=== PATIENT | female | born 1960 | race African-American/Black ===

== ENCOUNTER 2017-09-12 19:40 | Emergency (ER) | payer BC, OTHER ==
[~2017-09-12] VITALS: Ht 152.4 cm; Wt 113.4 kg
[~2017-09-12 19:40] MED LIST: ASPI-1152 PO; ESOM20CA PO; LOSA100T15 PO; SIMV20TA6 PO
[2017-09-12] MEDS ORDERED: BENZONATATE 100 MG CAPSULE PO ONE (20:30)
[2017-09-12] MEDS ORDERED: ALBUTEROL SULFATE 2.5 MG/3 ML NEBU NEB ONE ×2 (20:30→21:30)
[2017-09-12] MEDS ORDERED: BENZONATATE 100 MG CAPSULE ONE (20:32)
[2017-09-12] MEDS ORDERED: ALBUTEROL SULFATE 2.5 MG/3 ML NEBU ONE ×2 (20:33→21:44)
--- NOTE | 2017-09-12 22:09 | NUR ---
Patient sitting in bed, watching tv, receiving breathing treatment, no acute signs of distress.
--- NOTE | 2017-09-12 23:11 | NUR ---
Xray at bedside.
--- NOTE | 2017-09-12 23:55 | NUR ---
Patient discharged to home in stable conditon. Written and verbal after care instructions given. Patient verbalizes understanding of instructions. Patient out of ER with steady gait, no acute signs of distress, VSS, all belongings taken.
[2017-09-13 00:03] VITALS: BP 143/81
== END 2017-09-13 00:04 | disposition home or self-care (01) ==
LOC: ER 19:44
DX: J20.8 Acute bronchitis due to other specified organisms (principal); B97.89 Other viral agents as the cause of diseases classified elsewhere; I10 Essential (primary) hypertension; E78.5 Hyperlipidemia, unspecified; K21.9 Gastro-esophageal reflux disease without esophagitis; Z79.82 Long term (current) use of aspirin; Z79.899 Other long term (current) drug therapy
CPT/HCPCS: 71045; A4663

== ENCOUNTER 2018-04-10 11:00 | Emergency (ER) | payer BC, OTHER ==
[~2018-04-10] VITALS: Ht 152.4 cm; Wt 113.4 kg
--- NOTE | 2018-04-10 11:22 | NUR ---
ALIREZA BARRIGA at the bedside for MSE.
[2018-04-10 11:38] VITALS: BP 152/70
--- NOTE | 2018-04-10 11:39 | NUR ---
Patient discharged to home in stable conditon. Written and verbal after care instructions given. Patient verbalizes understanding of instructions.
== END 2018-04-10 11:40 | disposition home or self-care (01) ==
LOC: ER 11:00
DX: J03.90 Acute tonsillitis, unspecified (principal); I10 Essential (primary) hypertension; E78.5 Hyperlipidemia, unspecified; K21.9 Gastro-esophageal reflux disease without esophagitis
CPT/HCPCS: A4663

== ENCOUNTER 2019-08-05 17:27 | Emergency (ER) | payer BC, OTHER ==
[~2019-08-05] VITALS: Ht 165.1 cm; Wt 136.1 kg
[2019-08-05] MEDS ORDERED: IPRATROPIUM BROMIDE 0.5 MG/2.5 ML NEBU ONE (21:11)
[2019-08-05] MEDS ORDERED: ALBUTEROL SULFATE 2.5 MG/3 ML NEBU ONE (21:11)
[2019-08-05] MEDS ORDERED: ALBUTEROL SULFATE 2.5 MG/3 ML NEBU NEB ONE (21:15)
[2019-08-05] MEDS ORDERED: IPRATROPIUM BROMIDE 0.5 MG/2.5 ML NEBU NEB ONE (21:15)
[2019-08-05] MEDS ORDERED: predniSONE 10 MG TABLET PO ONE (21:15)
[2019-08-05] MEDS ORDERED: predniSONE 50 MG TABLET ONE (21:30)
[2019-08-05] MEDS ORDERED: predniSONE 10 MG TABLET ONE (21:30)
--- NOTE | 2019-08-05 22:40 | NUR ---
Patient discharged to home in stable conditon. Written and verbal after care instructions given. Patient verbalizes understanding of instructions. walked out of ER with no distress noted.
[2019-08-05 22:41] VITALS: BP 120/88
== END 2019-08-05 22:41 | disposition home or self-care (01) ==
LOC: ER 17:29
DX: J20.9 Acute bronchitis, unspecified (principal); I10 Essential (primary) hypertension; E78.5 Hyperlipidemia, unspecified; K21.9 Gastro-esophageal reflux disease without esophagitis; Z79.899 Other long term (current) drug therapy
CPT/HCPCS: 71045; 94640; 99283; J7512 ×2; A4663; J3590

== ENCOUNTER 2021-03-11 18:48 | Inpatient (IN) | payer BC, OTHER ==
[~2021-03-11] VITALS: Ht 165.1 cm; Wt 154.2 kg
[~2021-03-11 18:48] MED LIST changes: -ASPI-1152 PO; +ASPI-1420 PO; -LOSA100T15 PO; +LOSA100T31 PO; +SIMV-46 PO; -SIMV20TA6 PO
--- NOTE | 2021-03-11 21:44 | NUR ---
PATIENT ARRIVED AT THE ER C/O MANNING, NECK PAIN, CHILLS AND PRODUCTIVE COUGH THAT STARTED 9 DAYS.
--- NOTE | 2021-03-11 21:55 | NUR ---
Dr. Foote on bedside for MSE.
[2021-03-11] MEDS ORDERED: OXYCODONE/APAP 5-325 MG TABLET PO ONE (22:15)
[2021-03-11] MEDS ORDERED: OXYCODONE/APAP 5-325 MG TABLET ONE (22:17)
[2021-03-11 22:36] LABS: HEMATOCRIT 40.7 % (31.2-41.9); MEAN CORPUSCULAR HEMOGLOBIN 27.9 uug (24.7-32.8); MEAN CORPUSCULAR VOLUME 85.1 fL (75.5-95.3); PLATELET COUNT (AUTO) 216 K/uL (179-408)
[2021-03-11 22:44] LABS: CREATININE 0.9 mg/dL (0.6-1.3)
[2021-03-11 23:03] LABS: BILIRUBIN,TOTAL 0.2 mg/dL (0.2-1.0); TOTAL PROTEIN, SERUM 8.1 g/dL (6.4-8.2)
[2021-03-11] MEDS ORDERED: DEXAMETHASONE SOD PHOSPHATE 4 MG INJ IV ONE (23:15)
[2021-03-11] MEDS ORDERED: DEXAMETHASONE SOD PHOSPHATE 10 MG INJ ONE (23:40)
[2021-03-12 00:22] LABS: *BILIRUBIN,URIN 1+ (NEGATIVE); *BLOOD, URINE NEGATIVE (NEGATIVE); *COLOR,URINE AMBER (YELLOW); *KETONES,URINE 1+ (NEGATIVE); *UROBILINOGEN,URINE 0.2 E.U./dl (NORMAL); LEUKOCYTE ESTERASE ,URINE NEGATIVE (NEGATIVE); NITRITE, URINE NEGATIVE (NEGATIVE); PH,URINE 5.5 (5.0-8.0); UGLUCOSE NEGATIVE (NEGATIVE)
[2021-03-12 00:23] LABS: *CLARITY,URINE HAZY (CLEAR)
[2021-03-12 00:37] LABS: RBC,URINE 0-3 /HPF (0-3)
[2021-03-12 00:38] LABS: BACTERIA,URINE MODERATE /HPF (NONE SEEN); SQUAMOUS EPITHELIAL CELL,UR MANY /HPF (NONE SEEN)
--- NOTE | 2021-03-12 03:14 | NUR ---
[facility] panel call placed. Spoke to Tiffani, she stated she will get a hold of Dr. Patricio for admitting.
--- NOTE | 2021-03-12 03:25 | NUR ---
Shantanu Patricio DNP, sterilization specialist for [facility] accepted patient to Tele floor.
[2021-03-12] MEDS ORDERED: HOME MED MISCELLANEOUS XX SCH ×2 (03:30)
[2021-03-12] MEDS ORDERED: ONDANSETRON 4 MG/2 ML VIAL IV PRN (03:30)
--- NOTE | 2021-03-12 03:42 | NUR ---
Dr. Foote on panel call with LEA Grissom. Patient accepted for admission to telemetry unit. Luis GILL.
[2021-03-12 05:05] VITALS: BP 109/64
--- NOTE | 2021-03-12 05:14 | NUR ---
Pt. admitted to telemetry unit, room 314, under care of LEA Patricio. Belongs List completed.
[2021-03-12] MEDS: ACETAMINOPHEN 325 MG TABLET PO PRN (06:11)
--- NOTE | 2021-03-12 06:22 | NUR ---
At 0500H, admitted 60 y/o female to Tele from ER with dx of Covid 19, PNA. On O2 at 2lpm via NC, saturating at 93%. She is alert and oriented x4, able to make needs known. BRP, continent to B&B. Admission process observed, belongings list filled up. IV on L hand patent and intact, flushed with NS. Tylenol PRN given d/t neck pain. Oriented to room, verbalized understanding. Call light placed within reach. Frequent visual checks done. Will endorse to next shift for continuity of care.
[2021-03-12] MEDS: PANTOPRAZOLE SODIUM 40 MG TABLET.DR PO SCH (06:50)
[2021-03-12 08:47] VITALS: BP 118/55
[2021-03-12] MEDS: LOSARTAN POTASSIUM 50 MG TABLET PO SCH (08:52)
[2021-03-12] MEDS: ZINC SULFATE 220 MG CAPSULE PO SCH (08:52)
[2021-03-12] MEDS: ASPIRIN EC 81 MG TABLET.DR PO SCH (08:52)
[2021-03-12] MEDS: DEXAMETHASONE SOD PHOSPHATE 4 MG INJ IV SCH (08:52)
[2021-03-12] MEDS: ASCORBIC ACID 500 MG TABLET PO SCH (08:52)
[2021-03-12] MEDS: ENOXAPARIN SODIUM 40 MG/0.4 ML DISP.SYRIN SQ SCH (08:59)
[2021-03-12] MEDS ORDERED: SIMVASTATIN 20 MG TABLET PO SCH (09:00)
[2021-03-12] MEDS: AZITHROMYCIN 250 MG TABLET PO SCH (11:10)
[2021-03-12] MEDS ORDERED: REMDESIVIR (CHARGED) 200 MG in IV NORMAL SALINE 210 ML IV ONE (12:00)
[2021-03-12] MEDS ORDERED: AMLO-212 PO (14:51)
[2021-03-12 15:49] VITALS: BP 123/58
--- NOTE | 2021-03-12 17:44 | NUR ---
Pt stable throughout the shift. Denies any acute distress or pain at this time. Kept on 2L, tolerating well. NSR on the monitor. Initial dose of remdesivir given. Comfort care and needs attended. Isolation precaution maintained. Safety precautions in place. Will endorse to oncoming nurse
[2021-03-12] MEDS: SIMVASTATIN 20 MG TABLET PO SCH (20:14)
[2021-03-12 20:15] VITALS: BP 109/50
--- NOTE | 2021-03-12 20:30 | NUR ---
RECEIVED PATIENT AWAKE IN BED. ON ISOLATION FOR COVID POSITIVE. A/O X4. DENIES ANY PAIN OR DISCOMFORT. NO RESP. DISTRESS NOTED. DENIES ANY SOB. ON O2 2L NC SATING WELL. VS WNL. ON TELE SR. CALL LIGHT IN REACH. ALL NEEDS ATTENDED. WILL CONTINUE TO MONITOR AND ASSESS.
[2021-03-13] VITALS: BP 128/64
[2021-03-13 05:42] VITALS: BP 116/61
--- NOTE | 2021-03-13 06:02 | NUR ---
PATIENT ASLEEP IN BED. ON TELE SR. VS WNL. SLEPT WELL THROUGHOUT THE NIGHT. DENIES ANY SOB OR DISCOMFORT. CALL LIGHT IN REACH. ALL NEEDS ATTENDED.
[2021-03-13] MEDS: PANTOPRAZOLE SODIUM 40 MG TABLET.DR PO SCH (06:12)
[2021-03-13 07:19] LABS: HEMATOCRIT 36.8 % (31.2-41.9); MEAN CORPUSCULAR HEMOGLOBIN 27.8 uug (24.7-32.8); MEAN CORPUSCULAR VOLUME 84.6 fL (75.5-95.3); PLATELET COUNT (AUTO) 241 K/uL (179-408)
[2021-03-13 07:36] LABS: BILIRUBIN,TOTAL 0.1 mg/dL (0.2-1.0); CREATININE 0.7 mg/dL (0.6-1.3); POTASSIUM 3.8 mmol/L (3.5-5.1); TOTAL PROTEIN, SERUM 7.2 g/dL (6.4-8.2)
[2021-03-13] MEDS: LOSARTAN POTASSIUM 50 MG TABLET PO SCH (08:00)
[2021-03-13] MEDS: ZINC SULFATE 220 MG CAPSULE PO SCH (08:00)
[2021-03-13] MEDS: ASCORBIC ACID 500 MG TABLET PO SCH (08:00)
[2021-03-13] MEDS: ASPIRIN EC 81 MG TABLET.DR PO SCH (08:00)
[2021-03-13] MEDS: ENOXAPARIN SODIUM 40 MG/0.4 ML DISP.SYRIN SQ SCH (08:01)
[2021-03-13] MEDS: DEXAMETHASONE SOD PHOSPHATE 4 MG INJ IV SCH (08:11)
[2021-03-13] MEDS: AZITHROMYCIN 250 MG TABLET PO SCH (09:37)
[2021-03-13] MEDS: REMDESIVIR (CHARGED) 100 MG in IV NORMAL SALINE 100 ML IV SCH (11:12)
[2021-03-13 12:00] VITALS: BP 107/63
[2021-03-13] MEDS: BENZONATATE 100 MG CAPSULE PO PRN ×2 (13:11→23:50)
[2021-03-13 16:04] VITALS: BP 108/67
--- NOTE | 2021-03-13 19:30 | NUR ---
PATIENT ALERT ORIENTED, NO SOB NO CHEST PAIN, ON OXYGEN 2 LITER NC SAT 98%, NO COMPLAIN OF PAIN, CONT TO MONITOR. CONT TO MONITOR.
[2021-03-13] MEDS: SIMVASTATIN 20 MG TABLET PO SCH (20:05)
[2021-03-13 20:10] VITALS: BP 114/64
[2021-03-13] MEDS: ALBUTEROL SULFATE 8 GM HFA.AER.AD IH PRN (23:54)
[2021-03-14 00:01] VITALS: BP 97/53
--- NOTE | 2021-03-14 00:01 | NUR ---
PATIENT ALERT ORIENTED, NO COMPLAIN OF SOB, BUT SAT 88% AT 2 LITER, INCREASED OXYGEN TO 4 LITERS, GIVEN TESSALON COUGH MEDS, PLUS ALBUTEROL PUFF, SAT BECOME 91-92% AT 4 LITERS, CONT TO MONITOR.
--- NOTE | 2021-03-14 00:02 | NUR ---
PATIENT ON TELE MONITOR SINUS RHYTHM 82 HEART RATE. NO S/S OF DISTRESS.
--- NOTE | 2021-03-14 01:02 | NUR ---
RT ASSESS THE PATIENT DUE EPISODE OF LOW SAT OF 88, RT INCREASED O2 AT 6 LITERS NC SAT 90-91%, PATIENT HAS NO COMPLAIN OF SOB, NO S/S OF DISTRESS, SINUS RHYTHM AT THIS TIME. CONT TO MONITOR.
[2021-03-14 04:17] VITALS: BP 111/61
[2021-03-14] MEDS: PANTOPRAZOLE SODIUM 40 MG TABLET.DR PO SCH (06:08)
[2021-03-14 06:44] LABS: HEMATOCRIT 37.1 % (31.2-41.9); MEAN CORPUSCULAR VOLUME 84.3 fL (75.5-95.3); PLATELET COUNT (AUTO) 314 K/uL (179-408)
[2021-03-14 07:00] LABS: BILIRUBIN,DIRECT 0.1 mg/dL (0.0-0.2); BILIRUBIN,TOTAL 0.2 mg/dL (0.2-1.0); CREATININE 0.7 mg/dL (0.6-1.3); TOTAL PROTEIN, SERUM 7.5 g/dL (6.4-8.2)
--- NOTE | 2021-03-14 07:30 | NUR ---
Received patient on continuous o2 at 6L via NC, saturating at 88-89%. Denies pain. Kept call light within reach. Will continue to monitor.
[2021-03-14 08:00] VITALS: BP 120/82
[2021-03-14] MEDS: DEXAMETHASONE SOD PHOSPHATE 4 MG INJ IV SCH (08:43)
[2021-03-14] MEDS: ASPIRIN EC 81 MG TABLET.DR PO SCH (08:43)
[2021-03-14] MEDS: ZINC SULFATE 220 MG CAPSULE PO SCH (08:43)
[2021-03-14] MEDS: LOSARTAN POTASSIUM 50 MG TABLET PO SCH (08:44)
[2021-03-14] MEDS: ASCORBIC ACID 500 MG TABLET PO SCH (08:44)
[2021-03-14] MEDS: ENOXAPARIN SODIUM 40 MG/0.4 ML DISP.SYRIN SQ SCH (08:51)
[2021-03-14] MEDS: AZITHROMYCIN 250 MG TABLET PO SCH (09:13)
[2021-03-14 11:43] VITALS: BP 105/58
--- NOTE | 2021-03-14 12:00 | NUR ---
RT increased os at 10L via mask, on continuous o2 sat monitoring. Saturating at 90-92%. Noted with decreased in o2 sat to 88-89% with minimal activity moving side to side. Patient is unable to tolerate walking to the bathroom, SOB noted. Bedpan was offered, tolerated well. Bedside commode kept in place and within reach if needed. Will continue to monitor.
[2021-03-14] MEDS: REMDESIVIR (CHARGED) 100 MG in IV NORMAL SALINE 100 ML IV SCH (12:08)
[2021-03-14 16:00] VITALS: BP 112/62
--- NOTE | 2021-03-14 18:05 | NUR ---
No distress identified and denies pain during the shift. All needs attended. Due meds given as ordered. Assisted with all her needs. Will endorse to the next shift for continuity of care.
--- NOTE | 2021-03-14 19:30 | NUR ---
RECEIVED PT AWAKE, ALERT AND ORIENTEDX4. PT IN NO ACUTE DISTRESS. IV INTACT. PT ON 10L VIA MASK. SAFETY AND COMFORT PROVIDED. WILL CONTINUE TO MONITOR.
[2021-03-14] MEDS: ACETAMINOPHEN 325 MG TABLET PO PRN (20:04)
[2021-03-14] MEDS: BENZONATATE 100 MG CAPSULE PO PRN (20:05)
[2021-03-14] MEDS: SIMVASTATIN 20 MG TABLET PO SCH (20:05)
[2021-03-14 20:21] VITALS: BP 114/51
--- NOTE | 2021-03-14 21:30 | NUR ---
AT 2004H TYLENOL 650 MG PRN AND TESSALON PERLES 100MG PRN GIVEN TO PT PER PT REQUEST.
[2021-03-15 00:03] VITALS: BP 109/68
[2021-03-15 04:21] VITALS: BP 121/64
--- NOTE | 2021-03-15 06:02 | NUR ---
PT SLEPT INTERMITTENTLY. PT IN NO ACUTE DISTRESS. PRESCRIBED MEDICATION GIVEN AND PT TOLERATED IT WELL. PT ON SINUS RHYTHM. PT ON 10L OXYGEN.IV INTACT SAFETY AND COMFORT PROVIDED. ALL NEEDS ARE MET. WILL ENDORSE TO INCOMING NURSE FOR CONTINUITY OF CARE.
[2021-03-15] MEDS ORDERED: PANTOPRAZOLE SODIUM 40 MG TABLET.DR PO ONE (06:37)
[2021-03-15 06:40] LABS: HEMATOCRIT 39.5 % (31.2-41.9); MEAN CORPUSCULAR HEMOGLOBIN 27.5 uug (24.7-32.8); MEAN CORPUSCULAR VOLUME 84.9 fL (75.5-95.3); PLATELET COUNT (AUTO) 373 K/uL (179-408)
[2021-03-15] MEDS: PANTOPRAZOLE SODIUM 40 MG TABLET.DR PO SCH (06:51)
--- NOTE | 2021-03-15 07:30 | NUR ---
received sitting at edge of bed, had just gone to commode. on 10lpm O2 no resp distress noted. denies pain or difficulty breathing. assisted back to bed. kept comfortable. bed low and locked siderails on. kept comfortable. will continue to monitor.
[2021-03-15] MEDS: ASPIRIN EC 81 MG TABLET.DR PO SCH (08:30)
[2021-03-15] MEDS: DEXAMETHASONE SOD PHOSPHATE 4 MG INJ IV SCH (08:31)
[2021-03-15] MEDS: ZINC SULFATE 220 MG CAPSULE PO SCH (08:31)
[2021-03-15] MEDS: LOSARTAN POTASSIUM 50 MG TABLET PO SCH (08:31)
[2021-03-15] MEDS: ENOXAPARIN SODIUM 40 MG/0.4 ML DISP.SYRIN SQ SCH (08:33)
[2021-03-15 09:07] LABS: BILIRUBIN,DIRECT 0.1 mg/dL (0.0-0.2); BILIRUBIN,TOTAL 0.2 mg/dL (0.2-1.0); CREATININE 0.6 mg/dL (0.6-1.3); POTASSIUM 3.8 mmol/L (3.5-5.1); TOTAL PROTEIN, SERUM 7.4 g/dL (6.4-8.2)
[2021-03-15] MEDS: ASCORBIC ACID 500 MG TABLET PO SCH (09:20)
[2021-03-15] MEDS: REMDESIVIR (CHARGED) 100 MG in IV NORMAL SALINE 100 ML IV SCH (11:58)
[2021-03-15 13:15] VITALS: BP 101/73
[2021-03-15 15:42] VITALS: BP 106/70
[2021-03-15] MEDS: ALBUTEROL SULFATE 8 GM HFA.AER.AD IH PRN (17:35)
--- NOTE | 2021-03-15 18:48 | NUR ---
alert and oriented x4. sr on tele hr 90. no acute distress. remains on 10 Lpm simple mask tolerated. spo2 noted 90-92% at rest. remdesivir given as ordered. no adverse/allergic reactions noted. pt is kept comfortable. needs attended. safety measures kept in place.
--- NOTE | 2021-03-15 19:30 | NUR ---
RECEIVED PT AWAKE, ALERT AND ORIENTEDX4. PT IN NO ACUTE DISTRESS. IV INTACT. PT ON 10L SIMPLE MASK AT 95%. SAFETY AND COMFORT PROVIDED. WILL CONTINUE TO MONITOR.
[2021-03-15] MEDS: BENZONATATE 100 MG CAPSULE PO PRN (20:20)
[2021-03-15] MEDS: SIMVASTATIN 20 MG TABLET PO SCH (20:20)
--- NOTE | 2021-03-15 20:20 | NUR ---
SHANTAL HARVEY GIVEN AT 2020H FOR COUGH PER PT REQUEST. PT IN NO ACUTE DISTRESS. WILL CONTINUE TO MONITOR.
[2021-03-15 20:44] VITALS: BP 107/65
[2021-03-16] VITALS (7 sets, daily range): BP systolic 108–129; BP diastolic 66–77
--- NOTE | 2021-03-16 01:11 | NUR ---
15 L NONREBREATHER MASK WAS PLACED FOR THE PT. PT DESATURATED 86% WHILE SLEEPING. RT AWARE.
--- NOTE | 2021-03-16 06:00 | NUR ---
PT SLEPT INTERMITTENTLY. PT IN NO ACUTE DISTRESS. PT ON 15L NONREBREATHER MASK. PRESCRIBED MEDICATION GIVEN AND PT TOLERATED IT WELL. PT ON SINUS RHYTHM. TESSALON PERLES GIVEN PRN . SAFETY AND COMFORT PROVIDED. ALL NEEDS ARE MET. WILL ENDORSE TO INCOMING NURSE FOR CONTINUITY OF CARE.
[2021-03-16] MEDS: BENZONATATE 100 MG CAPSULE PO PRN (06:04)
[2021-03-16] MEDS: PANTOPRAZOLE SODIUM 40 MG TABLET.DR PO SCH (06:04)
[2021-03-16 06:28] LABS: HEMATOCRIT 40.7 % (31.2-41.9); MEAN CORPUSCULAR VOLUME 84.3 fL (75.5-95.3); PLATELET COUNT (AUTO) 478 K/uL (179-408)
[2021-03-16 06:39] LABS: BILIRUBIN,DIRECT 0.1 mg/dL (0.0-0.2); BILIRUBIN,TOTAL 0.3 mg/dL (0.2-1.0); CREATININE 0.6 mg/dL (0.6-1.3); POTASSIUM 3.8 mmol/L (3.5-5.1); TOTAL PROTEIN, SERUM 7.7 g/dL (6.4-8.2)
--- NOTE | 2021-03-16 07:30 | NUR ---
RECEIVED PATIENT IN BED AWAKE ALERT AND ORIENTED DENIES DISCOMFORTS REMAIN ON CONTACT AND RESPIRATORY ISOLATION AND PRECAUTION DUE TO POSITIVE COVID.ON ON NON REBREATHER MASK AT 15 LITERS WITH SATS AT 93PERCENT WITH NO SHORTNESS OF BREATH AT THIS TIME SHE IS SR ON TELE CALL LIGHTS AND PERSONAL BELONGINGS ARE WITHIN EASY REACH MADE COMFORTABLE AND WILL CONTINUE TO OBSERV.
[2021-03-16] MEDS: ASPIRIN EC 81 MG TABLET.DR PO SCH (08:27)
[2021-03-16] MEDS: DEXAMETHASONE SOD PHOSPHATE 4 MG INJ IV SCH (08:27)
[2021-03-16] MEDS: ASCORBIC ACID 500 MG TABLET PO SCH (08:27)
[2021-03-16] MEDS: ZINC SULFATE 220 MG CAPSULE PO SCH (08:27)
[2021-03-16] MEDS: LOSARTAN POTASSIUM 50 MG TABLET PO SCH (08:28)
[2021-03-16] MEDS: ENOXAPARIN SODIUM 40 MG/0.4 ML DISP.SYRIN SQ SCH (08:31)
--- NOTE | 2021-03-16 08:47 | NUR ---
DR SANFORD HERE TO SEE PATIENT WITH NEW ORDERS AND NOTED
[2021-03-16] MEDS: REMDESIVIR (CHARGED) 100 MG in IV NORMAL SALINE 100 ML IV SCH (12:21)
--- NOTE | 2021-03-16 12:21 | NUR ---
REMDESIVIR STATED AND INFUSED ORDERED WITH NO ADVERSE OR ALLERGIC REACTIONS QAT THIS TIME
--- NOTE | 2021-03-16 19:30 | NUR ---
Received patient lying in bed. AAOx4. In no apparent distress. On O2 at 15LPM via non-rebreather mask in place. O2 sat at 94%. Midline line on right upper arm intact and patent. NSR on tele with HR of 80/min. COVID precaution observed. Safety measure initiated and call acosta within reached.
[2021-03-16] MEDS: SIMVASTATIN 20 MG TABLET PO SCH (20:07)
[2021-03-17] VITALS: BP 119/69
[2021-03-17] MEDS: ALBUTEROL SULFATE 8 GM HFA.AER.AD IH PRN (00:56)
[2021-03-17 04:00] VITALS: BP 124/74
[2021-03-17 06:02] LABS: HEMATOCRIT 38.5 % (31.2-41.9); MEAN CORPUSCULAR HEMOGLOBIN 28.1 uug (24.7-32.8); MEAN CORPUSCULAR VOLUME 84.5 fL (75.5-95.3); PLATELET COUNT (AUTO) 480 K/uL (179-408)
[2021-03-17] MEDS: PANTOPRAZOLE SODIUM 40 MG TABLET.DR PO SCH (06:14)
[2021-03-17 06:18] LABS: ALANINE AMINOTRANSFERASE 23 U/L (14-59); ALKALINE PHOSPHATASE 62 U/L (50-136); ASPARTATE AMINOTRANSFERASE 15 U/L (15-37); BILIRUBIN,DIRECT < 0.1 mg/dL (0.0-0.2); BILIRUBIN,TOTAL 0.3 mg/dL (0.2-1.0); CARBON DIOXIDE 31 mmol/L (21-32); CHLORIDE 101 mmol/L (98-107); CREATININE 0.6 mg/dL (0.6-1.3); FERRITIN 165 ng/mL (8-252); GLUCOSE 103 mg/dL (74-106); LACTATE DEHYDROGENASE 298 U/L (81-234); MAGNESIUM 2.3 mg/dL (1.8-2.4); PHOSPHOROUS 3.7 mg/dL (2.5-4.9); POTASSIUM 3.5 mmol/L (3.5-5.1); TOTAL PROTEIN, SERUM 7.2 g/dL (6.4-8.2); UREA NITROGEN, BLOOD 13 mg/dL (7-18)
--- NOTE | 2021-03-17 06:38 | NUR ---
AAOx4. On O2 at 15LPM via non-rebreather mask in place. O2 sat at 91%. Midline line on right upper arm intact and patent. NSR on tele with HR of 79/min. COVID precaution maintained. Needs attended to and met. Safety measure maintained and call acosta within reached.
--- NOTE | 2021-03-17 08:00 | NUR ---
RESTING COMFORTABLY SITTING AT BEDSIDE WITH 15L NRM SATURATING 91-95%. YELENA TO VERBALIZE NEEDS, SR/ST ON MONITOR 100-110/MIN.
[2021-03-17] MEDS: ASCORBIC ACID 500 MG TABLET PO SCH (08:30)
[2021-03-17] MEDS: ASPIRIN EC 81 MG TABLET.DR PO SCH (08:30)
[2021-03-17] MEDS: ENOXAPARIN SODIUM 40 MG/0.4 ML DISP.SYRIN SQ SCH (08:30)
[2021-03-17] MEDS: DEXAMETHASONE SOD PHOSPHATE 4 MG INJ IV SCH ×3 (08:31→21:00)
[2021-03-17] MEDS: ACETAMINOPHEN 325 MG TABLET PO PRN ×2 (08:31→13:36)
[2021-03-17] MEDS: LOSARTAN POTASSIUM 50 MG TABLET PO SCH (08:31)
[2021-03-17] MEDS: ZINC SULFATE 220 MG CAPSULE PO SCH (08:31)
[2021-03-17 12:00] VITALS: BP 107/62
--- NOTE | 2021-03-17 12:00 | NUR ---
SEEN BY DR SANFORD SEE NOTES
[2021-03-17] MEDS ORDERED: TOCILIZUMAB 800 MG in IV NORMAL SALINE 60 ML IV ONE (13:00)
[2021-03-17] MEDS ORDERED: diphenhydrAMINE 50 MG/1 ML VIAL IV ONE (13:00)
[2021-03-17] MEDS ORDERED: ACETAMINOPHEN 650 MG/20.3 ML LIQUID UDC PO ONE (13:00)
[2021-03-17 16:00] VITALS: BP 117/66
--- NOTE | 2021-03-17 16:15 | NUR ---
CONTINUE TX FOR COVED ORDERED. NO ACTE SOB TOLERATING 15L NRM
[2021-03-17 20:00] VITALS: BP 116/72
--- NOTE | 2021-03-17 20:15 | NUR ---
Received patient lying in bed. HOB elevated. AAOx4. In no acute distress. On O2 at 15LPM via non-rebreather mask in place. Midline line on right upper arm intact and patent. NSR on tele with HR of 91/min. Needs assessed and attended to. COVID precaution observed. Safety measure initiated and call acosta within reached.
[2021-03-17] MEDS: SIMVASTATIN 20 MG TABLET PO SCH (20:52)
[2021-03-18] VITALS: BP 112/70
[2021-03-18 04:00] VITALS: BP 104/69
[2021-03-18] MEDS: DEXAMETHASONE SOD PHOSPHATE 4 MG INJ IV SCH ×3 (05:22→21:00)
--- NOTE | 2021-03-18 06:11 | NUR ---
Patient slept well last night. AOx4. Denies any pain or SOB. On O2 at 15LPM via non-rebreather mask in place. O2 sat at 92%. Midline line on right upper arm intact and patent. NSR on tele with HR of 69/min. Needs attended to and met. COVID precaution maintained. Safety measures maintained and call acosta within reached.
[2021-03-18] MEDS: PANTOPRAZOLE SODIUM 40 MG TABLET.DR PO SCH (06:15)
[2021-03-18 06:21] LABS: HEMATOCRIT 36.7 % (31.2-41.9); MEAN CORPUSCULAR HEMOGLOBIN 27.8 uug (24.7-32.8); MEAN CORPUSCULAR VOLUME 83.8 fL (75.5-95.3); PLATELET COUNT (AUTO) 533 K/uL (179-408)
[2021-03-18 06:33] LABS: CREATININE 0.6 mg/dL (0.6-1.3); MAGNESIUM 2.4 mg/dL (1.8-2.4); PHOSPHOROUS 3.8 mg/dL (2.5-4.9); POTASSIUM 4.2 mmol/L (3.5-5.1)
[2021-03-18 06:35] LABS: THYROID STIMULATING HORMONE 0.337 mIU/mL (0.358-3.740)
[2021-03-18] MEDS ORDERED: MAG HYDROX/AL HYDROX/SIMETH 30 ML LIQUID UDC PO PRN (08:45)
[2021-03-18] MEDS: ZINC SULFATE 220 MG CAPSULE PO SCH (10:02)
[2021-03-18] MEDS: ASCORBIC ACID 500 MG TABLET PO SCH (10:03)
[2021-03-18] MEDS: ASPIRIN EC 81 MG TABLET.DR PO SCH (10:03)
[2021-03-18] MEDS: LOSARTAN POTASSIUM 50 MG TABLET PO SCH (10:03)
[2021-03-18] MEDS: ENOXAPARIN SODIUM 40 MG/0.4 ML DISP.SYRIN SQ SCH (10:04)
[2021-03-18] MEDS ORDERED: FUROSEMIDE 40 MG/4 ML VIAL IV ONE (11:00)
[2021-03-18 12:00] VITALS: BP 124/55
[2021-03-18 16:00] VITALS: BP 120/69
[2021-03-18 20:00] VITALS: BP 104/46
--- NOTE | 2021-03-18 22:37 | NUR ---
Received pt awake on bed, at 15LPM via non-rebreather mask in place. O2 sat at 94%. Midline line on CLARENCE remains intact and patent. Due medication given and tolerated well. All needs attended. Droplet isolation precaution observed. Call light placed within reach.
[2021-03-19] VITALS: BP 105/62
[2021-03-19] MEDS: ACETAMINOPHEN 325 MG TABLET PO PRN (01:28)
[2021-03-19 04:00] VITALS: BP 112/54
[2021-03-19] MEDS: DEXAMETHASONE SOD PHOSPHATE 4 MG INJ IV SCH ×3 (05:48→21:12)
[2021-03-19] MEDS: PANTOPRAZOLE SODIUM 40 MG TABLET.DR PO SCH (06:01)
[2021-03-19 06:10] LABS: CREATININE 0.8 mg/dL (0.6-1.3); MAGNESIUM 2.3 mg/dL (1.8-2.4); PHOSPHOROUS 4.1 mg/dL (2.5-4.9); POTASSIUM 4.2 mmol/L (3.5-5.1)
--- NOTE | 2021-03-19 06:13 | NUR ---
Pt slept intermittently throughout the night, On O2 at 15LPM via non-rebreather. Saturating at 94-96%. Midline line on CLARENCE remains intact and patent. Due medication given and tolerated well. Tylenol PRN given for mild neck pain. All needs attended. Covid precaution observed. All needs attended. Call light placed within reach. Frequent visual checks done. Will endorse for continuity of care.
[2021-03-19 07:17] LABS: THYROID STIMULATING HORMONE 0.386 mIU/mL (0.358-3.740)
[2021-03-19 07:46] LABS: HEMATOCRIT 41.6 % (31.2-41.9); MEAN CORPUSCULAR HEMOGLOBIN 28.1 uug (24.7-32.8); MEAN CORPUSCULAR VOLUME 90.1 fL (75.5-95.3); PLATELET COUNT (AUTO) 528 K/uL (179-408)
[2021-03-19] MEDS: LOSARTAN POTASSIUM 50 MG TABLET PO SCH (09:00)
[2021-03-19] MEDS: ASPIRIN EC 81 MG TABLET.DR PO SCH (09:23)
[2021-03-19] MEDS: ENOXAPARIN SODIUM 40 MG/0.4 ML DISP.SYRIN SQ SCH (09:23)
[2021-03-19] MEDS: ZINC SULFATE 220 MG CAPSULE PO SCH (09:23)
[2021-03-19] MEDS: ASCORBIC ACID 500 MG TABLET PO SCH (09:23)
[2021-03-19] MEDS ORDERED: FUROSEMIDE 40 MG/4 ML VIAL IV ONE (09:30)
[2021-03-19 11:32] VITALS: BP 116/69
[2021-03-19 15:15] VITALS: BP 92/56
--- NOTE | 2021-03-19 18:52 | NUR ---
Pt remains AAOx4 with 02 at 15 liters by NRB mask 02sat 98-99%,no acute distress .No c/o pain or discomfort. Midline at CLARENCE intact and patent. Meds given as ordered and tolerated well. Seen by DR Yi, update given to MD with new order for incentive spirometer.Explained to PT how to use incentive spirometer and the PT verbalized understanding.Assisted with all her needs promptly,call light and frequently used items placed within PT's reach.
[2021-03-19 20:52] VITALS: BP 120/75
[2021-03-20 00:10] VITALS: BP 110/65
--- NOTE | 2021-03-20 04:26 | NUR ---
Pt slept throughut the night. Denies chest pain. Pt desats when trying to move or when talking, otherwise during rest pt sats 97% on 15L NRM. Pt is able to make needs known. CLARENCE midline is intact. No other issues or concerns at this time, will endorse to day shift.
[2021-03-20 04:35] VITALS: BP 108/59
[2021-03-20] MEDS: PANTOPRAZOLE SODIUM 40 MG TABLET.DR PO SCH (06:22)
[2021-03-20] MEDS: DEXAMETHASONE SOD PHOSPHATE 4 MG INJ IV SCH ×3 (06:23→21:46)
[2021-03-20 06:38] LABS: HEMATOCRIT 38.1 % (31.2-41.9); MEAN CORPUSCULAR HEMOGLOBIN 28.1 uug (24.7-32.8); MEAN CORPUSCULAR VOLUME 83.9 fL (75.5-95.3); PLATELET COUNT (AUTO) 624 K/uL (179-408)
[2021-03-20 06:55] LABS: CREATININE 0.9 mg/dL (0.6-1.3); MAGNESIUM 2.3 mg/dL (1.8-2.4); PHOSPHOROUS 3.5 mg/dL (2.5-4.9); POTASSIUM 4.1 mmol/L (3.5-5.1)
[2021-03-20] MEDS: ENOXAPARIN SODIUM 40 MG/0.4 ML DISP.SYRIN SQ SCH (08:07)
[2021-03-20] MEDS: ASCORBIC ACID 500 MG TABLET PO SCH (08:26)
[2021-03-20] MEDS: ASPIRIN EC 81 MG TABLET.DR PO SCH (08:26)
[2021-03-20] MEDS: ZINC SULFATE 220 MG CAPSULE PO SCH (08:26)
[2021-03-20] MEDS: LOSARTAN POTASSIUM 50 MG TABLET PO SCH (09:00)
[2021-03-20 12:00] VITALS: BP 104/65
[2021-03-20 15:32] VITALS: BP 121/68
[2021-03-20 18:06] LABS: CRYPTOCOCCUS AB, SERUM Negative (Negative)
--- NOTE | 2021-03-20 18:49 | NUR ---
Patient awake in bed. AOx4. On 15L NRB mask, 96-98% saturation. Patient denies pain/ discomfort at this time. Compliant with medications and care. Right UA midline intact and patent. Needs anticipated and met. Frequent patient rounding for safety. Call light within reach. Bed alarm on for safety. Will endorse to incoming shift for continuity of care.
--- NOTE | 2021-03-20 20:00 | NUR ---
Received patient awake in bed. a/o x4. On 15L non-rebreather mask, sating 97%. vs wnl. Patient denies any sob. Denies any pain or discomfort. On tele SR. Mid-line noted to right upper arm, intact. Call light in reach. All needs attended. Will continue to monitor and assess.
[2021-03-20 20:19] VITALS: BP 106/61
[2021-03-20] MEDS: ZOLPIDEM 5 MG TABLET PO PRN (21:52)
[2021-03-21 00:05] VITALS: BP 112/50
[2021-03-21 04:20] VITALS: BP 121/59
[2021-03-21] MEDS: PANTOPRAZOLE SODIUM 40 MG TABLET.DR PO SCH (06:10)
--- NOTE | 2021-03-21 06:36 | NUR ---
ON TELE SR. SLEPT WELL THROUGHOUT THE NIGHT. CALL LIGHT IN REACH. ALL NEEDS ATTENDED.
[2021-03-21] MEDS: DEXAMETHASONE SOD PHOSPHATE 4 MG INJ IV SCH ×3 (06:41→21:12)
--- NOTE | 2021-03-21 08:00 | NUR ---
AWAKE ALERT AND VERBALLY RESPONSIVE DENIES CHEST PAIN OR SOB TOLERATING 15 L NRM SITTING AT THE EDGE OF BED SR ON MONITOR
[2021-03-21 08:42] VITALS: BP 112/55
[2021-03-21] MEDS: BENZONATATE 100 MG CAPSULE PO PRN (08:48)
[2021-03-21] MEDS: ENOXAPARIN SODIUM 40 MG/0.4 ML DISP.SYRIN SQ SCH (08:48)
[2021-03-21] MEDS: ASCORBIC ACID 500 MG TABLET PO SCH (08:48)
[2021-03-21] MEDS: ZINC SULFATE 220 MG CAPSULE PO SCH (08:48)
[2021-03-21] MEDS: ASPIRIN EC 81 MG TABLET.DR PO SCH (08:48)
[2021-03-21] MEDS: LOSARTAN POTASSIUM 50 MG TABLET PO SCH (08:49)
[2021-03-21] MEDS ORDERED: FUROSEMIDE 20 MG/2 ML VIAL IV ONE (10:30)
--- NOTE | 2021-03-21 12:00 | NUR ---
NO ACUTE CHANGE FROM MORNING ASSESSMENT. SEEN BY PERMACULTURE DESIGNER DR PETER SEE NOTES
[2021-03-21 13:27] VITALS: BP 126/68
--- NOTE | 2021-03-21 16:03 | NUR ---
COMFORTABLE WITH CURRENT O2 SETTINGS SATURATING 93-94%, NO ACUTE CHANGE FROM BASELINE ASSESSMENT
[2021-03-21 16:05] VITALS: BP 96/50
[2021-03-21 17:06] LABS: COCCIDIOIDES CF SERUM Negative (Neg:<1:2)
[2021-03-21 20:46] VITALS: BP 108/67
[2021-03-21] MEDS: ZOLPIDEM 5 MG TABLET PO PRN (21:59)
[2021-03-22 00:17] VITALS: BP 100/62
[2021-03-22 04:42] VITALS: BP 98/54
[2021-03-22] MEDS: DEXAMETHASONE SOD PHOSPHATE 4 MG INJ IV SCH ×3 (06:06→21:02)
[2021-03-22] MEDS: PANTOPRAZOLE SODIUM 40 MG TABLET.DR PO SCH (06:07)
--- NOTE | 2021-03-22 07:09 | NUR ---
PATIENT SLEPT WELL THROUGHOUT THE NIGHT. ON TELE SR. CONTINUED ON NON-REBREATHER MASK 15L. WILL CONTINUE TO MONITOR AND ASSESS.
--- NOTE | 2021-03-22 08:00 | NUR ---
RECEIVED REPORT FROM NURSING UNIT MANAGER. PATIENT IN HIGH FOWLERS POSITION. AWAKE, ALERT X4, ANSWERS QUESTIONS APPROPRIATELY.STILL NOTED WITH ON AND OFF EXERTIONAL SOB, ON 15 L/MIN VIA NRM, 02 SATS 95%, ON CONTINUES 02 SAT MONITORING AND TELEMETRY. IN SINUS RHYTHM. DENIES ANY PAIN, REMAINS AFEBRILE. CONTINUE POC.
[2021-03-22] MEDS: LOSARTAN POTASSIUM 50 MG TABLET PO SCH (08:44)
[2021-03-22] MEDS: ZINC SULFATE 220 MG CAPSULE PO SCH (08:45)
[2021-03-22] MEDS: ASCORBIC ACID 500 MG TABLET PO SCH (08:45)
[2021-03-22] MEDS: ASPIRIN EC 81 MG TABLET.DR PO SCH (08:45)
[2021-03-22] MEDS: ENOXAPARIN SODIUM 40 MG/0.4 ML DISP.SYRIN SQ SCH (08:47)
[2021-03-22] MEDS: BENZONATATE 100 MG CAPSULE PO PRN (08:48)
[2021-03-22] MEDS ORDERED: ASCORBIC ACID 500 MG TABLET PO SCH (09:30)
[2021-03-22] MEDS: CHOLECALCIFEROL 1,000 UNIT TABLET PO SCH (11:11)
[2021-03-22] MEDS: MULTIVITAMINS,THERAPEUTIC TABLET PO SCH (11:36)
[2021-03-22 11:42] VITALS: BP 111/59
[2021-03-22] MEDS: ACETAMINOPHEN 325 MG TABLET PO PRN (13:26)
--- NOTE | 2021-03-22 13:42 | NUR ---
Attemped to wean patient from 15L oxygen. Placed patient on simple mask at 10L/min. Noted with sob and 02 sat 72. NRM restarted at 15 L, saturating at 95%.
[2021-03-22 16:29] VITALS: BP 111/64
--- NOTE | 2021-03-22 16:58 | NUR ---
Follow up with Infection plant control operator and clarified that pt should stay in isolation and that PCR is not needed.
[2021-03-22 20:18] VITALS: BP 119/65
[2021-03-22] MEDS: ACIDOPHILUS/BULGARICUS CHEW TAB PO SCH (20:32)
[2021-03-22] MEDS: ZOLPIDEM 5 MG TABLET PO PRN (22:09)
[2021-03-23 00:09] VITALS: BP 98/60
[2021-03-23 04:18] VITALS: BP 110/57
--- NOTE | 2021-03-23 05:18 | NUR ---
Pt slept throughout the night. Denies chest pain. No discomfort noted. On 15L NRM, tolerating well. IV site intact. No other issues or concerns at this time, will endorse to day shift.
[2021-03-23] MEDS: DEXAMETHASONE SOD PHOSPHATE 4 MG INJ IV SCH ×3 (06:12→21:46)
[2021-03-23] MEDS: PANTOPRAZOLE SODIUM 40 MG TABLET.DR PO SCH (06:12)
[2021-03-23 07:21] LABS: MEAN CORPUSCULAR HEMOGLOBIN 27.8 uug (24.7-32.8); MEAN CORPUSCULAR VOLUME 85.3 fL (75.5-95.3); PLATELET COUNT (AUTO) 515 K/uL (179-408)
[2021-03-23 07:50] LABS: BILIRUBIN,TOTAL 0.3 mg/dL (0.2-1.0); CREATININE 0.9 mg/dL (0.6-1.3); MAGNESIUM 2.4 mg/dL (1.8-2.4); PHOSPHOROUS 3.9 mg/dL (2.5-4.9); POTASSIUM 4.1 mmol/L (3.5-5.1); TOTAL PROTEIN, SERUM 6.4 g/dL (6.4-8.2)
--- NOTE | 2021-03-23 08:00 | NUR ---
RECEIVED REPORT FROM DEPARTMENT SUPERVISOR. PATIENT IN BED IN HIGH FOWLERS POSITION. AWAKE, ALERT X4. PATIENT IS EASILY FRUSTRATED. ON 15 L/MIN VIA NRM, 02 SATS 94% . CONTINUES ON 02 SAT MONITORING AND TELEMETRY. IN SINUS RHYTHM. DENIES ANY PAIN, REMAINS AFEBRILE. CONTINUE POC.
[2021-03-23] MEDS: LOSARTAN POTASSIUM 25 MG TABLET PO SCH (09:00)
[2021-03-23] MEDS: MULTIVITAMINS,THERAPEUTIC TABLET PO SCH (09:09)
[2021-03-23] MEDS: ZINC SULFATE 220 MG CAPSULE PO SCH (09:09)
[2021-03-23] MEDS: ENOXAPARIN SODIUM 40 MG/0.4 ML DISP.SYRIN SQ SCH (09:09)
[2021-03-23] MEDS: ASCORBIC ACID 500 MG TABLET PO SCH (09:09)
[2021-03-23] MEDS: ACIDOPHILUS/BULGARICUS CHEW TAB PO SCH ×2 (09:09→21:35)
[2021-03-23] MEDS: CHOLECALCIFEROL 1,000 UNIT TABLET PO SCH (09:09)
[2021-03-23] MEDS: ASPIRIN EC 81 MG TABLET.DR PO SCH (09:10)
[2021-03-23 12:00] VITALS: BP 105/69
--- NOTE | 2021-03-23 14:15 | NUR ---
PCR- NASOPHARANGEAL SPECIMEN COLLECTED FOR COVID19 TESTING. DROPPED OFF AT LAB.
[2021-03-23 15:13] LABS: *BILIRUBIN,URIN NEGATIVE (NEGATIVE); *BLOOD, URINE NEGATIVE (NEGATIVE); *COLOR,URINE YELLOW (YELLOW); *KETONES,URINE TRACE (NEGATIVE); *UROBILINOGEN,URINE 0.2 E.U./dl (NORMAL); LEUKOCYTE ESTERASE ,URINE TRACE (NEGATIVE); NITRITE, URINE NEGATIVE (NEGATIVE); PH,URINE 5.5 (5.0-8.0); UGLUCOSE NEGATIVE (NEGATIVE)
[2021-03-23 15:20] LABS: *CLARITY,URINE HAZY (CLEAR); BACTERIA,URINE FEW /HPF (NONE SEEN); RBC,URINE 0-3 /HPF (0-3); SQUAMOUS EPITHELIAL CELL,UR MODERATE /HPF (NONE SEEN)
[2021-03-23 16:00] VITALS: BP 109/69
--- NOTE | 2021-03-23 18:15 | NUR ---
Patient is comfortable in bed, in high fowlers position. no changes from morning baseline.
[2021-03-23 20:18] VITALS: BP 119/55
[2021-03-23] MEDS: ZOLPIDEM 5 MG TABLET PO PRN (21:35)
[2021-03-24 05:00] VITALS: BP 99/54
[2021-03-24] MEDS: DEXAMETHASONE SOD PHOSPHATE 4 MG INJ IV SCH ×3 (05:27→21:06)
[2021-03-24] MEDS: PANTOPRAZOLE SODIUM 40 MG TABLET.DR PO SCH (06:22)
[2021-03-24 07:07] LABS: MEAN CORPUSCULAR HEMOGLOBIN 28.3 uug (24.7-32.8); MEAN CORPUSCULAR VOLUME 85.4 fL (75.5-95.3); PLATELET COUNT (AUTO) 414 K/uL (179-408)
--- NOTE | 2021-03-24 07:30 | NUR ---
received patient sitting in bed in no apparent distress, able to make needs known. patient is currently in PUI all precautions upheld by staff. Patient is currently on non-rebreather at 15L, current spo2 92% on 15%, bp: 99/64, P: 91, t: 98.1, T: 98.1, rr: 21. respirations are even and non-labored, denies any sob at this time. reminded patient to use call light for help. side rails up x2, will monitor.
[2021-03-24 07:31] LABS: CREATININE 0.8 mg/dL (0.6-1.3); MAGNESIUM 2.3 mg/dL (1.8-2.4); PHOSPHOROUS 4.1 mg/dL (2.5-4.9); POTASSIUM 4.6 mmol/L (3.5-5.1)
[2021-03-24] MEDS: LOSARTAN POTASSIUM 25 MG TABLET PO SCH (09:00)
--- NOTE | 2021-03-24 09:00 | NUR ---
offered patient medication, patient appears frustrated "states why do i have to take the medicine while you are here, do you not trust i will take them" Reminded patient that it is policy to not leave medications in room. 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 Returned to room and patient appeared to be in a better mood.
[2021-03-24] MEDS: CHOLECALCIFEROL 1,000 UNIT TABLET PO SCH (09:30)
[2021-03-24] MEDS: ZINC SULFATE 220 MG CAPSULE PO SCH (09:30)
[2021-03-24] MEDS: ASCORBIC ACID 500 MG TABLET PO SCH (09:30)
[2021-03-24] MEDS: MULTIVITAMINS,THERAPEUTIC TABLET PO SCH (09:30)
[2021-03-24] MEDS: NITROFURANTOIN/NITROFURAN MAC 100 MG CAPSULE PO SCH ×2 (09:30→21:05)
[2021-03-24] MEDS: ASPIRIN EC 81 MG TABLET.DR PO SCH (09:30)
[2021-03-24] MEDS: FUROSEMIDE 20 MG TABLET PO SCH (09:30)
[2021-03-24] MEDS: ACIDOPHILUS/BULGARICUS CHEW TAB PO SCH ×2 (09:30→21:06)
[2021-03-24] MEDS: ENOXAPARIN SODIUM 40 MG/0.4 ML DISP.SYRIN SQ SCH (09:32)
[2021-03-24 11:44] VITALS: BP 99/68
--- NOTE | 2021-03-24 13:42 | NUR ---
spoke with DTScott tyson all questions were answered.
[2021-03-24 16:07] VITALS: BP 108/58
--- NOTE | 2021-03-24 18:31 | NUR ---
patient remains stable at this time.
--- NOTE | 2021-03-24 19:45 | NUR ---
Received patient lying in bed. AOX4. Patient denies SOB, chest pain or dizziness. IV heplock, on right upper arm, is intact and patent with no redness or swelling noted. On equipment monitor phototypesetting, showing normal sinus rhythm and HR of 121bpm. On 15L of oxygen via non-rebreather mask, showing RR of 18cpm Safety and comfort measures initiated, call light within reach and bed alarm activated. Will continue to monitor.
[2021-03-24 20:00] VITALS: BP 130/83
[2021-03-24] MEDS: ACETAMINOPHEN 325 MG TABLET PO PRN (20:36)
[2021-03-24] MEDS: ZOLPIDEM 5 MG TABLET PO PRN (21:05)
[2021-03-25] VITALS: BP 104/67
[2021-03-25 04:00] VITALS: BP 131/80
[2021-03-25] MEDS: DEXAMETHASONE SOD PHOSPHATE 4 MG INJ IV SCH ×3 (06:24→21:26)
[2021-03-25] MEDS: PANTOPRAZOLE SODIUM 40 MG TABLET.DR PO SCH (06:25)
--- NOTE | 2021-03-25 06:39 | NUR ---
Patient slept throughout the night. No acute distress noted. All due medications were given and tolerated well. On patient financial services coordinator, showing normal sinus rhythm, HR 80bpm. IV site intact and patent. Continued on 15L O2 via non-rebreather mask. Will endorse to day shift nurse.
[2021-03-25 07:36] LABS: HEMATOCRIT 42.9 % (31.2-41.9); MEAN CORPUSCULAR HEMOGLOBIN 28.1 uug (24.7-32.8); MEAN CORPUSCULAR VOLUME 85.4 fL (75.5-95.3); PLATELET COUNT (AUTO) 333 K/uL (179-408)
[2021-03-25 07:45] LABS: CREATININE 0.9 mg/dL (0.6-1.3); MAGNESIUM 2.6 mg/dL (1.8-2.4); PHOSPHOROUS 4.1 mg/dL (2.5-4.9); POTASSIUM 4.6 mmol/L (3.5-5.1)
[2021-03-25] MEDS: ENOXAPARIN SODIUM 40 MG/0.4 ML DISP.SYRIN SQ SCH (08:40)
[2021-03-25] MEDS: ASCORBIC ACID 500 MG TABLET PO SCH (08:41)
[2021-03-25] MEDS: NITROFURANTOIN/NITROFURAN MAC 100 MG CAPSULE PO SCH ×2 (08:41→20:27)
[2021-03-25] MEDS: ZINC SULFATE 220 MG CAPSULE PO SCH (08:41)
[2021-03-25] MEDS: CHOLECALCIFEROL 1,000 UNIT TABLET PO SCH (08:41)
[2021-03-25] MEDS: ACIDOPHILUS/BULGARICUS CHEW TAB PO SCH ×2 (08:41→20:27)
[2021-03-25] MEDS: MULTIVITAMINS,THERAPEUTIC TABLET PO SCH (08:41)
[2021-03-25] MEDS: ASPIRIN EC 81 MG TABLET.DR PO SCH (08:41)
[2021-03-25] MEDS: FUROSEMIDE 20 MG TABLET PO SCH (08:41)
[2021-03-25] MEDS: LOSARTAN POTASSIUM 25 MG TABLET PO SCH (09:17)
[2021-03-25 11:57] VITALS: BP 114/75
[2021-03-25 15:40] VITALS: BP 112/62
--- NOTE | 2021-03-25 18:48 | NUR ---
Patient resting in bed. AOx4. Patient on 15L O2 via nonrebreather mask and 5L O2 via NC, saturating at 93%. Patient denies pain/ discomfort. Patient denies SOB at this time. Patient compliant with medications and care. Patient had episode of shortness of breath while transferring to bedside commode, saturation at 85%. Patient assisted back to bed and monitored. Patient stated relief of shortness of breath after resting in bed ,saturation 91%. Bed alarm on for safety. Call light within reach. Will endorse to incoming shift for continuity of care.
--- NOTE | 2021-03-25 19:31 | NUR ---
RECEIVED PT AWAKE , ALERT AND ORIENTEDX4. PT IN NO ACUTE RESPIRATORY DISTRESS. PT ON 15L NONREBREATHER MASK AND 5L NASAL CANNULA. SAFETY AND COMFORT PROVIDED. WILL CONTINUE TO MONITOR.
[2021-03-25 20:25] VITALS: BP 112/69
[2021-03-25] MEDS: ACETAMINOPHEN 325 MG TABLET PO PRN (20:27)
[2021-03-25] MEDS: ZOLPIDEM 5 MG TABLET PO PRN (21:26)
--- NOTE | 2021-03-25 21:35 | NUR ---
TYLENOL PRN GIVEN AT 650 MG PER PT REQUEST. AMBIEN 10 MG PRN GIVEN AT 2125H PER PT REQUEST. PT STABLE. WILL COTNINUE TO MONITOR.
[2021-03-26 00:05] VITALS: BP 120/66
[2021-03-26 04:30] VITALS: BP 122/82
[2021-03-26] MEDS: DEXAMETHASONE SOD PHOSPHATE 4 MG INJ IV SCH ×3 (05:52→21:03)
--- NOTE | 2021-03-26 06:10 | NUR ---
PT SLEPT INTERMITTENTLY. PT IN NO ACUTE DISTRESS. PT ON 15 NONREBREATHER MASK AND 5L NASAL CANNULA. PT ON SINUS RHYTHM. COMPLIANT WITH CARE. PT AFEBRILE. IV INTACT. SAFETY AND COMFORT PROVIDED. WILL ENDORSE TO INCOMING NURSE FOR CONTINUITY OF CARE.
[2021-03-26] MEDS: PANTOPRAZOLE SODIUM 40 MG TABLET.DR PO SCH (06:35)
[2021-03-26 07:48] LABS: HEMATOCRIT 45.5 % (31.2-41.9); MEAN CORPUSCULAR HEMOGLOBIN 27.9 uug (24.7-32.8); MEAN CORPUSCULAR VOLUME 85.7 fL (75.5-95.3); PLATELET COUNT (AUTO) 226 K/uL (179-408)
[2021-03-26 08:11] LABS: BILIRUBIN,DIRECT 0.1 mg/dL (0.0-0.2); BILIRUBIN,TOTAL 0.5 mg/dL (0.2-1.0); CREATININE 0.8 mg/dL (0.6-1.3); MAGNESIUM 2.7 mg/dL (1.8-2.4); PHOSPHOROUS 4.4 mg/dL (2.5-4.9); POTASSIUM 4.7 mmol/L (3.5-5.1); TOTAL PROTEIN, SERUM 6.4 g/dL (6.4-8.2)
[2021-03-26] MEDS: NITROFURANTOIN/NITROFURAN MAC 100 MG CAPSULE PO SCH (08:28)
[2021-03-26] MEDS: MULTIVITAMINS,THERAPEUTIC TABLET PO SCH (08:28)
[2021-03-26] MEDS: ASPIRIN EC 81 MG TABLET.DR PO SCH (08:28)
[2021-03-26] MEDS: ZINC SULFATE 220 MG CAPSULE PO SCH (08:28)
[2021-03-26] MEDS: ACIDOPHILUS/BULGARICUS CHEW TAB PO SCH ×2 (08:28→21:00)
[2021-03-26] MEDS: ASCORBIC ACID 500 MG TABLET PO SCH (08:28)
[2021-03-26] MEDS: FUROSEMIDE 20 MG TABLET PO SCH (08:29)
[2021-03-26] MEDS: LOSARTAN POTASSIUM 25 MG TABLET PO SCH (08:30)
[2021-03-26] MEDS: CHOLECALCIFEROL 1,000 UNIT TABLET PO SCH (08:31)
[2021-03-26] MEDS: ENOXAPARIN SODIUM 40 MG/0.4 ML DISP.SYRIN SQ SCH (08:34)
--- NOTE | 2021-03-26 10:49 | NUR ---
PT IN NO ACUTE DISTRESS. OXYGEN SATURATION RANGES TO 88-90%.PT STABLE.PT ON 15L NONREBREATHER MASK AND 5L NASAL CANNULA. COMPLIANT WITH CARE. IV INTACT. SAFETY AND COMFORT PROVIDED. WILL ENDORSE FOR CONTINUITY OF CARE.
[2021-03-26] MEDS: FLUCONAZOLE 100 MG TABLET PO SCH (11:06)
--- NOTE | 2021-03-26 11:30 | NUR ---
RECEIVED PATIENT ALERT/ORIENTED, ON CONTINUOUS O2 AT 15l NON REBREATHER AND 5L NC. SOB NOTED UPON TRANSFERRING TO THE COMMODE. O2 SAT IS FLUCTUATING FROM 85-89% WITH MINIMAL EXERTION. ASSISTED WITH TRANSFERRING AND CHANGE. BM NOTED. IV ATB GIVEN ORDERED. DRESSING CHANGE TO THE MIDLINE, TOLERATED WELL, INTACT AND FLUSHING WELL. KEPT CALL LIGHT WITHIN REACH. WILL CONTINUE TO MONITOR.
[2021-03-26 12:00] VITALS: BP 111/82
[2021-03-26] MEDS: CEFTRIAXONE 1 G in IV DEXTROSE 5% 50 ML IV SCH (12:01)
[2021-03-26 16:00] VITALS: BP 120/76
--- NOTE | 2021-03-26 18:13 | NUR ---
REMAINED STABLE WITH NO DISTRESS IDENTIFIED. SHE WAS NOTED WITH DESATURATION OF 85-88% DURING EXERTION. NEW BELONGINGS BROUGHT BY THE FAMILY, SIGNED AND WITH THE PATIENT. KEPT SAFE AND COMFORTABLE. DENIES PAIN. FREQUENT CHECKS DONE. THROAT SWAB DONE ORDERED, SENT TO THE LAB, AWAITING RESULT. WILL ENDORSE TO THE NEXT SHIFT FOR CONTINUITY OF CARE. Addendum: 03/26/21 at 1822 by DEBORAH STOKES RN THROAT SWAB DONE FOR THROAT CULTURE ORDERED. LAB MADE AWARE. SAMPLE SENT TO THE LAB.
[2021-03-26 20:25] VITALS: BP 107/54
[2021-03-26] MEDS: BENZONATATE 100 MG CAPSULE PO PRN (21:00)
--- NOTE | 2021-03-26 21:23 | NUR ---
Awake alert and oriented x4 On continous 15L nonrebreather mask pulse ox 98%. VSS Continent of bowel and bladder. (+) cough Tessalon perles given. Will monitor patient. All needs attended. Patient sinus rhythm on the monitor. No complaints presented at this time.
[2021-03-27] MEDS: DEXAMETHASONE SOD PHOSPHATE 4 MG INJ IV SCH ×3 (05:07→21:48)
[2021-03-27] MEDS: PANTOPRAZOLE SODIUM 40 MG TABLET.DR PO SCH (06:39)
[2021-03-27 07:06] LABS: HEMATOCRIT 44.7 % (31.2-41.9); MEAN CORPUSCULAR HEMOGLOBIN 27.6 uug (24.7-32.8); MEAN CORPUSCULAR VOLUME 86.6 fL (75.5-95.3); PLATELET COUNT (AUTO) 146 K/uL (179-408)
[2021-03-27 07:18] LABS: CREATININE 0.9 mg/dL (0.6-1.3); MAGNESIUM 2.6 mg/dL (1.8-2.4); PHOSPHOROUS 5.3 mg/dL (2.5-4.9); POTASSIUM 4.7 mmol/L (3.5-5.1)
[2021-03-27] MEDS: LOSARTAN POTASSIUM 25 MG TABLET PO SCH (09:00)
[2021-03-27] MEDS: ACIDOPHILUS/BULGARICUS CHEW TAB PO SCH ×2 (10:41→20:28)
[2021-03-27] MEDS: CHOLECALCIFEROL 1,000 UNIT TABLET PO SCH (10:41)
[2021-03-27] MEDS: ASCORBIC ACID 500 MG TABLET PO SCH (10:41)
[2021-03-27] MEDS: ZINC SULFATE 220 MG CAPSULE PO SCH (10:43)
[2021-03-27] MEDS: FUROSEMIDE 20 MG TABLET PO SCH (10:43)
[2021-03-27] MEDS: ASPIRIN EC 81 MG TABLET.DR PO SCH (10:44)
[2021-03-27] MEDS: MULTIVITAMINS,THERAPEUTIC TABLET PO SCH (10:44)
[2021-03-27] MEDS: FLUCONAZOLE 100 MG TABLET PO SCH (10:44)
[2021-03-27] MEDS: ENOXAPARIN SODIUM 40 MG/0.4 ML DISP.SYRIN SQ SCH (10:45)
[2021-03-27] MEDS: CEFTRIAXONE 1 G in IV DEXTROSE 5% 50 ML IV SCH (10:57)
[2021-03-27 12:00] VITALS: BP 99/75
[2021-03-27 16:00] VITALS: BP 127/82
--- NOTE | 2021-03-27 18:30 | NUR ---
Patient remains alert, oriented x 4, not in acute distress, on 15L NRB mask and 6LPM NC with O2 sat 92-94% but desats with exertion. She denies any pain or discomfort. Assisted with her needs promptly. Call light and frequently used items placed within patient's reach.
[2021-03-27 20:10] VITALS: BP 108/62
[2021-03-28 00:05] VITALS: BP 100/48
[2021-03-28] MEDS: ACETAMINOPHEN 325 MG TABLET PO PRN ×2 (04:00→22:07)
[2021-03-28 04:20] VITALS: BP 112/63
[2021-03-28] MEDS: DEXAMETHASONE SOD PHOSPHATE 4 MG INJ IV SCH ×3 (06:02→21:10)
[2021-03-28] MEDS: PANTOPRAZOLE SODIUM 40 MG TABLET.DR PO SCH (06:02)
--- NOTE | 2021-03-28 06:11 | NUR ---
Patient in bed awake alert and able to make needs known.On 15L NRB mask. Tolerated well .Sating well at 94-95 %.Denies pain or discomfort at this time.Able to use bedside commode. Urinated well x2 .VSS.All needs anticipated and met accordingly.
[2021-03-28 07:02] LABS: MEAN CORPUSCULAR HEMOGLOBIN 27.5 uug (24.7-32.8); PLATELET COUNT (AUTO) 113 K/uL (179-408)
[2021-03-28 07:12] LABS: CREATININE 0.9 mg/dL (0.6-1.3); MAGNESIUM 2.9 mg/dL (1.8-2.4); PHOSPHOROUS 4.8 mg/dL (2.5-4.9); POTASSIUM 4.9 mmol/L (3.5-5.1)
--- NOTE | 2021-03-28 08:00 | NUR ---
received patient laying in bed in no apparent distress. patient currently on 15L via non-rebreather with spo2 @ 94%, BP: 97/65, p: 109, rr: 20, T: 98.2, patient stating her neck is bothering her, offered a hot pack with help. patient in no apparent respiratory distress at this time, rr even and non-labored, 0 sob at this time. patient currently on telemetry sinus rhythm, midline to right upper arm in place and patent. reminded to use call light for help, side rails upx2, will monitor.
[2021-03-28] MEDS: LOSARTAN POTASSIUM 25 MG TABLET PO SCH (09:00)
[2021-03-28] MEDS: ZINC SULFATE 220 MG CAPSULE PO SCH (09:03)
[2021-03-28] MEDS: ACIDOPHILUS/BULGARICUS CHEW TAB PO SCH ×2 (09:03→21:09)
[2021-03-28] MEDS: ASPIRIN EC 81 MG TABLET.DR PO SCH (09:04)
[2021-03-28] MEDS: MULTIVITAMINS,THERAPEUTIC TABLET PO SCH (09:04)
[2021-03-28] MEDS: ASCORBIC ACID 500 MG TABLET PO SCH (09:04)
[2021-03-28] MEDS: CHOLECALCIFEROL 1,000 UNIT TABLET PO SCH (09:05)
[2021-03-28] MEDS: FLUCONAZOLE 100 MG TABLET PO SCH (09:05)
[2021-03-28] MEDS: FUROSEMIDE 20 MG TABLET PO SCH (09:05)
[2021-03-28] MEDS: ENOXAPARIN SODIUM 40 MG/0.4 ML DISP.SYRIN SQ SCH (09:09)
[2021-03-28 09:18] VITALS: BP 107/67
--- NOTE | 2021-03-28 11:00 | NUR ---
assisted patient with ADL's. patient had one medium bowel movement. IV rocephin administered and tolerated well, no a/r noted. midline to right upper arm in place and patent, dressing clean and dry at this time.
[2021-03-28 11:35] VITALS: BP 97/65
[2021-03-28] MEDS: CEFTRIAXONE 1 G in IV DEXTROSE 5% 50 ML IV SCH (12:07)
[2021-03-28 15:38] VITALS: BP 102/71
--- NOTE | 2021-03-28 18:47 | NUR ---
patient remains stable at this time, remains on 15L via non-rebreather with spo2 at 96% at rest, rr even and non-labored, 0 sob at this time. call light within reach, side rails up x2.
[2021-03-28 20:35] VITALS: BP 122/77
[2021-03-28] MEDS: ZOLPIDEM 5 MG TABLET PO PRN (22:07)
--- NOTE | 2021-03-28 22:38 | NUR ---
Received pt resting in bed. AAO x4. On 15L NRB, no acute distress noted. Pt's O2 sat 92-98% at rest but desaturates to 86-90% on exertion. Due meds given as ordered. Pt denies discomfort. Safety measures maintained. Call light and personal items within reach. Will continue to monitor.
[2021-03-29 00:28] VITALS: BP 117/71
[2021-03-29 04:38] VITALS: BP 117/71
[2021-03-29] MEDS: DEXAMETHASONE SOD PHOSPHATE 4 MG INJ IV SCH ×3 (05:59→21:04)
[2021-03-29] MEDS: PANTOPRAZOLE SODIUM 40 MG TABLET.DR PO SCH (06:01)
--- NOTE | 2021-03-29 06:23 | NUR ---
Pt tolerating 15L NRB, saturation 92%- 98%. Remains stable. No acute distress noted. Pt refused lab this morning, and requested to do it later in the day. Will endorse accordingly.
--- NOTE | 2021-03-29 07:50 | NUR ---
Patient received resting in bed. A&Ox4. 15L O2 delivered via non-rebreather mask, saturation 94-99%. Right upper midline intact. No signs of infection noted. Denies pain. No complains of discomfort. Safety precautions in place, call light in reach. Will continue to monitor.
[2021-03-29 08:46] VITALS: BP 108/83
[2021-03-29] MEDS: LOSARTAN POTASSIUM 25 MG TABLET PO SCH (09:00)
[2021-03-29] MEDS: ACIDOPHILUS/BULGARICUS CHEW TAB PO SCH ×2 (09:23→21:03)
[2021-03-29] MEDS: ASPIRIN EC 81 MG TABLET.DR PO SCH (09:23)
[2021-03-29] MEDS: CHOLECALCIFEROL 1,000 UNIT TABLET PO SCH (09:23)
[2021-03-29] MEDS: MULTIVITAMINS,THERAPEUTIC TABLET PO SCH (09:23)
[2021-03-29] MEDS: ZINC SULFATE 220 MG CAPSULE PO SCH (09:23)
[2021-03-29] MEDS: ASCORBIC ACID 500 MG TABLET PO SCH (09:23)
[2021-03-29] MEDS: FLUCONAZOLE 100 MG TABLET PO SCH (09:24)
[2021-03-29] MEDS: FUROSEMIDE 20 MG TABLET PO SCH (09:24)
[2021-03-29] MEDS: ENOXAPARIN SODIUM 40 MG/0.4 ML DISP.SYRIN SQ SCH (09:25)
[2021-03-29] MEDS: CEFTRIAXONE 1 G in IV DEXTROSE 5% 50 ML IV SCH (10:57)
[2021-03-29 12:00] VITALS: BP 121/70
[2021-03-29 16:15] VITALS: BP 111/73
--- NOTE | 2021-03-29 20:00 | NUR ---
PT RESTING ON BED;; NOT IN ANY DISTRESS; SAT 100% ON 15L NRM; NEEDS ATTENDED.
[2021-03-29 20:10] VITALS: BP 120/65
[2021-03-29] MEDS: ZOLPIDEM 5 MG TABLET PO PRN (21:05)
[2021-03-29] MEDS: ACETAMINOPHEN 325 MG TABLET PO PRN (21:13)
[2021-03-30 00:10] VITALS: BP 96/70
[2021-03-30 04:10] VITALS: BP 112/70
--- NOTE | 2021-03-30 04:48 | NUR ---
PT RESTED WELL IN BETWEEN CARE; TOLERATES PRESENT OXYGEN SETTING IE 15L NRM; NEEDS ATTENDED; SAFETY MAINTAINED; CONTINUE TO MONITOR; CONTINUE PLAN OF CARE.
[2021-03-30] MEDS: PANTOPRAZOLE SODIUM 40 MG TABLET.DR PO SCH (05:33)
[2021-03-30] MEDS: DEXAMETHASONE SOD PHOSPHATE 4 MG INJ IV SCH ×3 (05:35→21:04)
[2021-03-30 07:59] LABS: CREATININE 0.8 mg/dL (0.6-1.3); MAGNESIUM 2.4 mg/dL (1.8-2.4); PHOSPHOROUS 4.2 mg/dL (2.5-4.9); POTASSIUM 4.6 mmol/L (3.5-5.1)
[2021-03-30 08:00] LABS: HEMATOCRIT 42.4 % (31.2-41.9); MEAN CORPUSCULAR VOLUME 87.2 fL (75.5-95.3); PLATELET COUNT (AUTO) 91 K/uL (179-408)
[2021-03-30] MEDS: LOSARTAN POTASSIUM 25 MG TABLET PO SCH (09:00)
[2021-03-30] MEDS: ACIDOPHILUS/BULGARICUS CHEW TAB PO SCH ×2 (09:29→21:04)
[2021-03-30] MEDS: ZINC SULFATE 220 MG CAPSULE PO SCH (09:29)
[2021-03-30] MEDS: CHOLECALCIFEROL 1,000 UNIT TABLET PO SCH (09:29)
[2021-03-30] MEDS: FUROSEMIDE 20 MG TABLET PO SCH (09:29)
[2021-03-30] MEDS: ASCORBIC ACID 500 MG TABLET PO SCH (09:30)
[2021-03-30] MEDS: MULTIVITAMINS,THERAPEUTIC TABLET PO SCH (09:30)
[2021-03-30] MEDS: ASPIRIN EC 81 MG TABLET.DR PO SCH (09:30)
[2021-03-30] MEDS: FLUCONAZOLE 100 MG TABLET PO SCH (09:30)
[2021-03-30] MEDS: ENOXAPARIN SODIUM 40 MG/0.4 ML DISP.SYRIN SQ SCH (09:31)
[2021-03-30] MEDS: CEFTRIAXONE 1 G in IV DEXTROSE 5% 50 ML IV SCH (09:48)
--- NOTE | 2021-03-30 10:00 | NUR ---
pt has been able to tolerate her o2 @ 11lit with sat of 90% since 900. PT shows proper technique of pursed lip breathing when her saturation goes down. Continue to encouraged pt to use her IS x 10 WA. Pt able to show proper technique as well on using her IS.
[2021-03-30 11:03] LABS: ABG BASE EXCESS 2.1 mmol/L; ABG HCO3 26.3 mmol/L; ABG PCO2 39.8 mmHg (35.0-45.0); ABG PH 7.438 (7.350-7.450); ABG PO2 42.5 mmHg (75.0-100.0); ABG SITE LEFT RADIAL; ABG TOTAL HEMOGLOBIN 14.8 G/dL (12.0-16.0); COHb 1.5 % (0.5-1.5); MetHb 0.3 % (0.0-1.5); O2Hb 79.1 % (94.0-97.0)
--- NOTE | 2021-03-30 11:15 | NUR ---
Notified DR lilly of AB with low PO2 of 40.5. PT put back to 15 lit. NRB.
[2021-03-30 12:00] VITALS: BP 133/61
--- NOTE | 2021-03-30 16:00 | NUR ---
Encouraged pt to do some proning explained purpose and benefits of having different position. Pt was not able to tolerate. PT was just on her left side.
[2021-03-30 16:33] VITALS: BP 124/79
[2021-03-30 20:25] VITALS: BP_SYST 131; BP_DIAS 48; BP_DIAS 53
[2021-03-31 00:09] VITALS: BP 125/75
[2021-03-31 04:20] VITALS: BP 96/67
--- NOTE | 2021-03-31 05:22 | NUR ---
Continue on 15L non re-breathable mask, well tolerated. No s/s of respiratory distress reported. No significant event reported all night. All needs attended and met. Remain afebrile. Continue care as planned.
[2021-03-31] MEDS: DEXAMETHASONE SOD PHOSPHATE 4 MG INJ IV SCH ×3 (05:41→21:06)
[2021-03-31] MEDS: PANTOPRAZOLE SODIUM 40 MG TABLET.DR PO SCH (05:54)
[2021-03-31 07:23] LABS: HEMATOCRIT 43.1 % (31.2-41.9); MEAN CORPUSCULAR HEMOGLOBIN 27.9 uug (24.7-32.8); MEAN CORPUSCULAR VOLUME 87.4 fL (75.5-95.3); PLATELET COUNT (AUTO) 107 K/uL (179-408)
[2021-03-31 07:53] LABS: CREATININE 0.8 mg/dL (0.6-1.3); MAGNESIUM 2.4 mg/dL (1.8-2.4); PHOSPHOROUS 3.9 mg/dL (2.5-4.9); POTASSIUM 4.6 mmol/L (3.5-5.1)
--- NOTE | 2021-03-31 08:00 | NUR ---
Patient sitting up on bed on 15L NRM, oxygen saturating at 87. Will continue to monitor. Alert and oriented x 4. Midline intact and patent. Chest Xray done, waiting on results. Call lights within reach and bed at lowest position.
[2021-03-31] MEDS: FLUCONAZOLE 100 MG TABLET PO SCH (09:00)
[2021-03-31] MEDS: ACIDOPHILUS/BULGARICUS CHEW TAB PO SCH ×2 (09:00→20:44)
[2021-03-31] MEDS: LOSARTAN POTASSIUM 25 MG TABLET PO SCH (09:00)
[2021-03-31] MEDS: CHOLECALCIFEROL 1,000 UNIT TABLET PO SCH (09:00)
[2021-03-31] MEDS: ASPIRIN EC 81 MG TABLET.DR PO SCH (09:00)
[2021-03-31] MEDS: ZINC SULFATE 220 MG CAPSULE PO SCH (09:00)
[2021-03-31] MEDS: MULTIVITAMINS,THERAPEUTIC TABLET PO SCH (09:00)
[2021-03-31] MEDS: ASCORBIC ACID 500 MG TABLET PO SCH (09:01)
[2021-03-31] MEDS: FUROSEMIDE 20 MG TABLET PO SCH (09:02)
[2021-03-31] MEDS: ENOXAPARIN SODIUM 40 MG/0.4 ML DISP.SYRIN SQ SCH (09:11)
[2021-03-31] MEDS: ACETAMINOPHEN 325 MG TABLET PO PRN (09:23)
[2021-03-31] MEDS: BENZONATATE 100 MG CAPSULE PO PRN (09:23)
[2021-03-31 12:00] VITALS: BP 112/68
[2021-03-31 16:00] VITALS: BP 103/61
--- NOTE | 2021-03-31 17:52 | NUR ---
Patient on 15L on NRM, oxygen saturating at 94%. Alert, oriented x 4.Patient remains calm, shows no signs of SOB. Sinus Tachycardia on air sampling and monitoring. Midline intact and patent. Call lights within reach, bed locked at the lowest position and side rails up x2. Will endorse to incoming shift.
--- NOTE | 2021-03-31 19:55 | NUR ---
Received Patient in bed awake alert and able to make needs known,Continuous on 15L on NRM and 3LPM Via NC saturating at 96%.No s/s of distress noted . Sinus Tachycardia on color television console monitor. Midline intact and patent. Call lights within reach.
[2021-03-31 20:25] VITALS: BP 99/60
[2021-03-31] MEDS: ZOLPIDEM 5 MG TABLET PO PRN (23:13)
[2021-04-01 00:15] VITALS: BP 103/70
[2021-04-01] MEDS: ACETAMINOPHEN 325 MG TABLET PO PRN ×2 (00:48→23:27)
[2021-04-01 04:25] VITALS: BP 117/66
[2021-04-01] MEDS: DEXAMETHASONE SOD PHOSPHATE 4 MG INJ IV SCH ×2 (05:45→20:19)
[2021-04-01] MEDS: PANTOPRAZOLE SODIUM 40 MG TABLET.DR PO SCH (06:02)
[2021-04-01] MEDS: MULTIVITAMINS,THERAPEUTIC TABLET PO SCH (08:56)
[2021-04-01] MEDS: FLUCONAZOLE 100 MG TABLET PO SCH (08:56)
[2021-04-01] MEDS: ACIDOPHILUS/BULGARICUS CHEW TAB PO SCH ×2 (08:56→20:18)
[2021-04-01] MEDS: ASPIRIN EC 81 MG TABLET.DR PO SCH (08:56)
[2021-04-01] MEDS: ZINC SULFATE 220 MG CAPSULE PO SCH (08:56)
[2021-04-01] MEDS: ASCORBIC ACID 500 MG TABLET PO SCH (08:56)
[2021-04-01] MEDS: CHOLECALCIFEROL 1,000 UNIT TABLET PO SCH (08:56)
[2021-04-01] MEDS: FUROSEMIDE 20 MG TABLET PO SCH (08:57)
[2021-04-01] MEDS: LOSARTAN POTASSIUM 25 MG TABLET PO SCH (08:57)
[2021-04-01] MEDS: ENOXAPARIN SODIUM 40 MG/0.4 ML DISP.SYRIN SQ SCH (08:58)
--- NOTE | 2021-04-01 09:09 | NUR ---
received this morning watching tv alert and oriented x4. no resp distress. on 15 lpm non rebreather and 3 lpm nasal cannula. denies sob or difficulty breathing. sat 94-96% on rest. sob on exertion and sat drops to 90-91%. denies pain. bed lowest and locked siderails up x2. call light and personal belongings in reach. cont to monitor. seen and examined by dr. bhatti and report given. Addendum: 04/01/21 at 0915 by ERNIE FOUNTAIN RN sinus rhythm on telemonitor hr 80s.
[2021-04-01 12:00] VITALS: BP 119/67
[2021-04-01 16:00] VITALS: BP 100/67
--- NOTE | 2021-04-01 19:05 | NUR ---
awake watching tv. doing well on 15 lpm nrb and 3lpm n/c sat 97%. on telemonitor sinus rhythm and sinus tachy at times. denies sob. needs attended. safety measures kept. call light in reach.
[2021-04-01 20:00] VITALS: BP 105/66
--- NOTE | 2021-04-01 21:24 | NUR ---
Received pt awake on bed using her laptop, alert and oriented x4 able to make needs known. on continuous O2 at 15 lpm via NRM and 3LPM via NC saturating at 94-96%. NSR on tele. CLARENCE midline remains patent and intact. Routine Decadron IV given on time and tolerated well. All needs attended. Call light placed within reach. Will continue to monitor.
[2021-04-01] MEDS: ZOLPIDEM 5 MG TABLET PO PRN (23:27)
[2021-04-02 00:13] VITALS: BP 114/79
[2021-04-02 04:00] VITALS: BP 101/67
[2021-04-02] MEDS: PANTOPRAZOLE SODIUM 40 MG TABLET.DR PO SCH (06:01)
[2021-04-02 07:06] LABS: HEMATOCRIT 41.6 % (31.2-41.9); MEAN CORPUSCULAR HEMOGLOBIN 27.9 uug (24.7-32.8); MEAN CORPUSCULAR VOLUME 86.7 fL (75.5-95.3); PLATELET COUNT (AUTO) 118 K/uL (179-408)
--- NOTE | 2021-04-02 07:23 | NUR ---
Pt slept intermittently throughout the night. On continuous O2 at 15 lpm via NRM and 2LPM via NC saturating at 96%. NSR on tele. All needs attended. Call light placed within reach. Will endorse to next shift for continuity of care.
[2021-04-02] MEDS: DEXAMETHASONE SOD PHOSPHATE 4 MG INJ IV SCH ×2 (09:08→21:15)
[2021-04-02] MEDS: ASPIRIN EC 81 MG TABLET.DR PO SCH (09:09)
[2021-04-02] MEDS: MULTIVITAMINS,THERAPEUTIC TABLET PO SCH (09:09)
[2021-04-02] MEDS: CHOLECALCIFEROL 1,000 UNIT TABLET PO SCH (09:09)
[2021-04-02] MEDS: ZINC SULFATE 220 MG CAPSULE PO SCH (09:09)
[2021-04-02] MEDS: ASCORBIC ACID 500 MG TABLET PO SCH (09:09)
[2021-04-02] MEDS: LOSARTAN POTASSIUM 25 MG TABLET PO SCH (09:10)
[2021-04-02] MEDS: FUROSEMIDE 20 MG TABLET PO SCH (09:10)
[2021-04-02] MEDS: FLUCONAZOLE 100 MG TABLET PO SCH (09:10)
[2021-04-02] MEDS: ENOXAPARIN SODIUM 40 MG/0.4 ML DISP.SYRIN SQ SCH (09:11)
[2021-04-02] MEDS: ACIDOPHILUS/BULGARICUS CHEW TAB PO SCH ×2 (09:12→21:14)
[2021-04-02 11:07] VITALS: BP 114/65
--- NOTE | 2021-04-02 18:14 | NUR ---
patient daughter called and had multiple questions, answered, daughter was requesting another covid test on her mother, but patient refused strongly to have anymore covid test for now, patient is on nasal canula, and on nonrebreather, drops o2 sat at exertion to low 80s, stable on rest, no events or distress noted.
[2021-04-02 20:00] VITALS: BP 104/62
--- NOTE | 2021-04-02 22:13 | NUR ---
Received pt awake on bed, alert and oriented x4 able to make needs known. On continuous O2 at 15 lpm via NRM and 2LPM via NC saturating at 96%. NSR on tele. CLARENCE midline remains patent and intact. Routine Decadron IV given on time and tolerated well. Denies pain and discomfort at this time. All needs attended. Call light placed within reach. Will continue to monitor.
[2021-04-02] MEDS: ACETAMINOPHEN 325 MG TABLET PO PRN (22:37)
[2021-04-02] MEDS: ZOLPIDEM 5 MG TABLET PO PRN (22:38)
--- NOTE | 2021-04-02 22:38 | NUR ---
Pt requested for Ambien, order is 5 mg 2 tabs but pt only wants to take one tonight. One 5 mg tab wasted.
[2021-04-03] VITALS: BP 102/60
[2021-04-03 04:00] VITALS: BP 103/63
[2021-04-03] MEDS: PANTOPRAZOLE SODIUM 40 MG TABLET.DR PO SCH (06:07)
--- NOTE | 2021-04-03 06:32 | NUR ---
Pt slept intermittently throughout the night. On continuous O2 at 15 lpm via NRM and 2LPM via NC saturating at 95%. NSR on tele. All needs attended. Call light placed within reach. Frequent visual checks done. Will endorse to next shift for continuity of care.
[2021-04-03] MEDS: DEXAMETHASONE SOD PHOSPHATE 4 MG INJ IV SCH ×2 (08:26→20:01)
[2021-04-03] MEDS: FUROSEMIDE 20 MG TABLET PO SCH (08:31)
[2021-04-03] MEDS: CHOLECALCIFEROL 1,000 UNIT TABLET PO SCH (08:31)
[2021-04-03] MEDS: ACIDOPHILUS/BULGARICUS CHEW TAB PO SCH ×2 (08:31→20:00)
[2021-04-03] MEDS: ASCORBIC ACID 500 MG TABLET PO SCH (08:31)
[2021-04-03] MEDS: ZINC SULFATE 220 MG CAPSULE PO SCH (08:31)
[2021-04-03] MEDS: MULTIVITAMINS,THERAPEUTIC TABLET PO SCH (08:31)
[2021-04-03] MEDS: LOSARTAN POTASSIUM 25 MG TABLET PO SCH (08:32)
[2021-04-03] MEDS: ASPIRIN EC 81 MG TABLET.DR PO SCH (08:32)
[2021-04-03] MEDS: FLUCONAZOLE 100 MG TABLET PO SCH (08:35)
[2021-04-03] MEDS: ENOXAPARIN SODIUM 40 MG/0.4 ML DISP.SYRIN SQ SCH (08:50)
[2021-04-03 11:19] VITALS: BP 102/51
[2021-04-03 16:08] VITALS: BP 106/63
[2021-04-03 20:11] VITALS: BP 110/52
[2021-04-03] MEDS: ZOLPIDEM 5 MG TABLET PO PRN (23:20)
[2021-04-03] MEDS: ACETAMINOPHEN 325 MG TABLET PO PRN (23:26)
[2021-04-04] VITALS: BP 104/65
[2021-04-04 04:15] VITALS: BP 123/67
[2021-04-04] MEDS: PANTOPRAZOLE SODIUM 40 MG TABLET.DR PO SCH (06:08)
[2021-04-04 08:26] LABS: MEAN CORPUSCULAR HEMOGLOBIN 28.8 uug (24.7-32.8); PLATELET COUNT (AUTO) 150 K/uL (179-408)
[2021-04-04 08:35] LABS: BILIRUBIN,TOTAL 0.6 mg/dL (0.2-1.0); CREATININE 0.6 mg/dL (0.6-1.3); MAGNESIUM 2.2 mg/dL (1.8-2.4); PHOSPHOROUS 4.2 mg/dL (2.5-4.9); POTASSIUM 4.4 mmol/L (3.5-5.1); TOTAL PROTEIN, SERUM 5.7 g/dL (6.4-8.2)
[2021-04-04] MEDS: LOSARTAN POTASSIUM 25 MG TABLET PO SCH (09:00)
--- NOTE | 2021-04-04 09:00 | NUR ---
Received patient in bed, alert and oriented x 4, denies of any pain, cooperative upon assessment, on oxygen at 2LPM and 15 lpm non rebreather mask. Patient saturating at 95% Instructed patient to give me a urine sample and patient verbalized understanding. Call light placed within reach. All due meds given per MD order. Seen by Dr Ling. Contact and droplet isolation rendered at all times for covid 19 precaution.
[2021-04-04] MEDS: MULTIVITAMINS,THERAPEUTIC TABLET PO SCH (09:39)
[2021-04-04] MEDS: ENOXAPARIN SODIUM 40 MG/0.4 ML DISP.SYRIN SQ SCH (09:39)
[2021-04-04] MEDS: ASCORBIC ACID 500 MG TABLET PO SCH (09:39)
[2021-04-04] MEDS: FLUCONAZOLE 100 MG TABLET PO SCH (09:39)
[2021-04-04] MEDS: ZINC SULFATE 220 MG CAPSULE PO SCH (09:39)
[2021-04-04] MEDS: CHOLECALCIFEROL 1,000 UNIT TABLET PO SCH (09:39)
[2021-04-04] MEDS: ASPIRIN EC 81 MG TABLET.DR PO SCH (09:39)
[2021-04-04] MEDS: FUROSEMIDE 20 MG TABLET PO SCH (09:40)
[2021-04-04] MEDS: DEXAMETHASONE SOD PHOSPHATE 4 MG INJ IV SCH ×2 (09:40→20:09)
[2021-04-04] MEDS: ACIDOPHILUS/BULGARICUS CHEW TAB PO SCH ×2 (09:40→20:10)
[2021-04-04 10:04] VITALS: BP 98/70
[2021-04-04 11:09] VITALS: BP 111/89
--- NOTE | 2021-04-04 11:13 | NUR ---
Patient decided to leave removed her armband and Left forearm IV site. She doesn't want to be assisted. She went by herself in the elevator and Tyler Vincent made aware.
--- NOTE | 2021-04-04 11:20 | NUR ---
discard the note. Wrong patient.
--- NOTE | 2021-04-04 14:00 | NUR ---
Patient had BM and pee. Instructed patient as soon as she feels going to urinate again to call us per MD order of urinalysis and urine culture. Patient verbalized understanding.
[2021-04-04 14:50] VITALS: BP 131/57
[2021-04-04 20:12] VITALS: BP 102/53
--- NOTE | 2021-04-04 21:00 | NUR ---
Received patient in bed. AOX4. On O2 oxygen at 2L via NC and 15L via NRM, saturating at 98%. Patient denies SOB, chest pain or dizziness at this time. Instructed patient to provide urine sample, patient verbalized that she is aware that it is need, however, patient would get aggravated whenever she is reminded. Will attempt to obtain urine sample. Safety and comfort measures initiated. Call light placed within reach. Will continue to monitor.
[2021-04-04] MEDS: ZOLPIDEM 5 MG TABLET PO PRN (22:30)
[2021-04-04] MEDS: ACETAMINOPHEN 325 MG TABLET PO PRN (22:40)
[2021-04-05 00:07] VITALS: BP 101/58
[2021-04-05 03:31] LABS: *BILIRUBIN,URIN NEGATIVE (NEGATIVE); *CLARITY,URINE CLEAR (CLEAR); *COLOR,URINE YELLOW (YELLOW); *KETONES,URINE NEGATIVE (NEGATIVE); *UROBILINOGEN,URINE 0.2 E.U./dl (NORMAL); LEUKOCYTE ESTERASE ,URINE NEGATIVE (NEGATIVE); NITRITE, URINE NEGATIVE (NEGATIVE); PH,URINE 5.5 (5.0-8.0); UGLUCOSE 2+ (NEGATIVE)
[2021-04-05 03:38] LABS: *BLOOD, URINE TRACE (NEGATIVE); BACTERIA,URINE FEW /HPF (NONE SEEN); SQUAMOUS EPITHELIAL CELL,UR FEW /HPF (NONE SEEN)
[2021-04-05 04:21] VITALS: BP 106/64
[2021-04-05] MEDS: PANTOPRAZOLE SODIUM 40 MG TABLET.DR PO SCH (06:35)
--- NOTE | 2021-04-05 07:05 | NUR ---
Pt slept intermittently through the night. Ambien was given to aid No acute distress noted at this time. Pt is still on O2 15L via NRB and 2L via NC, saturating at, 96% Collected required urine specimen, sent to lab. Cleansed sacral wound and applied mepelex. All needs attended to and met. Will endorse to incoming nurse.
[2021-04-05] MEDS: LOSARTAN POTASSIUM 25 MG TABLET PO SCH (09:00)
[2021-04-05 09:30] VITALS: BP 104/64
--- NOTE | 2021-04-05 09:30 | NUR ---
Pt is a/o x 4 Sinus rhythm on tele, saturating 100% on 15L nonrebreather + 2L NC. She uses a bedside commode, continent x 2. Pt is calm, cooperative with care and takes all medications. Losartan was held due to BP being 104/64. Pt is not in any acute distress or discomfort, will continue to monitor.
[2021-04-05] MEDS: MULTIVITAMINS,THERAPEUTIC TABLET PO SCH (09:42)
[2021-04-05] MEDS: ASCORBIC ACID 500 MG TABLET PO SCH (09:42)
[2021-04-05] MEDS: CHOLECALCIFEROL 1,000 UNIT TABLET PO SCH (09:42)
[2021-04-05] MEDS: ZINC SULFATE 220 MG CAPSULE PO SCH (09:43)
[2021-04-05] MEDS: FUROSEMIDE 20 MG TABLET PO SCH (09:43)
[2021-04-05] MEDS: FLUCONAZOLE 100 MG TABLET PO SCH (09:44)
[2021-04-05] MEDS: ASPIRIN EC 81 MG TABLET.DR PO SCH (09:44)
[2021-04-05] MEDS: ACIDOPHILUS/BULGARICUS CHEW TAB PO SCH ×2 (09:44→21:30)
[2021-04-05] MEDS: ENOXAPARIN SODIUM 40 MG/0.4 ML DISP.SYRIN SQ SCH (09:46)
[2021-04-05] MEDS: DEXAMETHASONE SOD PHOSPHATE 4 MG INJ IV SCH ×2 (10:31→21:30)
[2021-04-05 10:59] VITALS: BP 105/66
[2021-04-05 15:01] VITALS: BP 90/63
--- NOTE | 2021-04-05 19:30 | NUR ---
RECEIVED PT AWAKE, ALERT AND ORIENTEDX4. PT ON 15 NONREBREATHER MASK AND 2 L NASAL CANNULA. PT IV INTACT. PT IN NO ACUTE DISTRESS. SAFETY AND COMFORT PROVIDED. WILL CONTINUE TO MONITOR.
[2021-04-05 20:18] VITALS: BP 112/61
[2021-04-05] MEDS: ACETAMINOPHEN 325 MG TABLET PO PRN (21:30)
[2021-04-05] MEDS: ZOLPIDEM 5 MG TABLET PO PRN (22:31)
--- NOTE | 2021-04-05 23:31 | NUR ---
Tylenol 650mg prn given at 2130h as per pt request and Ambien 10 mg at 2231h for sleep. Will continue to monitor.
[2021-04-06 00:15] VITALS: BP 101/64
[2021-04-06 04:18] VITALS: BP 118/58
--- NOTE | 2021-04-06 05:30 | NUR ---
PT SLEPT INTERMITTENTLY. PT IN NO ACUTE DISTRESS. PT IV INTACT. PT ON SINUS RHYTHM. PT ON 15L NONREBREATHER MASK AND 2L NASAL CANNULA AT 96% OXYGEN SATURATION. SAFETY AND COMFORT PROVIDED. ALL NEEDS ARE MET. WILL ENDORSE TO INCOMING NURSE FOR CONTINUITY OF CARE.
[2021-04-06] MEDS: PANTOPRAZOLE SODIUM 40 MG TABLET.DR PO SCH (06:22)
[2021-04-06 08:00] VITALS: BP 103/54
--- NOTE | 2021-04-06 08:00 | NUR ---
Pt received awake, A/O x4. Pt is on non-rebreather mask at 15 L and a nasal canula 2L. Pt is continent but has difficulty getting out of the bed. Skin tears on buttock and sacral area are noted, wound care is pending. Pt is compliant with medications. Pt's O2 sat drops to low 80s when pt is moving around. Pt is able to bring it back up.
[2021-04-06] MEDS: ACIDOPHILUS/BULGARICUS CHEW TAB PO SCH ×2 (08:31→21:10)
[2021-04-06] MEDS: DEXAMETHASONE SOD PHOSPHATE 4 MG INJ IV SCH ×2 (08:31→21:09)
[2021-04-06] MEDS: CHOLECALCIFEROL 1,000 UNIT TABLET PO SCH (08:31)
[2021-04-06] MEDS: ZINC SULFATE 220 MG CAPSULE PO SCH (08:32)
[2021-04-06] MEDS: FLUCONAZOLE 100 MG TABLET PO SCH (08:32)
[2021-04-06] MEDS: MULTIVITAMINS,THERAPEUTIC TABLET PO SCH (08:32)
[2021-04-06] MEDS: FUROSEMIDE 20 MG TABLET PO SCH (08:32)
[2021-04-06] MEDS: ASCORBIC ACID 500 MG TABLET PO SCH (08:33)
[2021-04-06] MEDS: ASPIRIN EC 81 MG TABLET.DR PO SCH (08:33)
[2021-04-06] MEDS: LOSARTAN POTASSIUM 25 MG TABLET PO SCH (08:52)
[2021-04-06] MEDS: ENOXAPARIN SODIUM 40 MG/0.4 ML DISP.SYRIN SQ SCH (08:58)
--- NOTE | 2021-04-06 11:56 | NUR ---
WOUND CARE CONSULT: PT PRESENTS WITH INCONTINENCE ASSOCIATED SKIN DAMAGE TO BUTTOCKS AND GLUTEAL CREASE (NOT ON A BONY AREA). PT IS ABLE TO MOVE AND REPOSITION IN BED. PT DENIES NEED FOR BARIATRIC BED AND STATES IS ABLE TO GET UP TO COMMODE WITH ASSISTANCE. RECOMMENDATIONS MADE FOR SKIN PROTECTION AND CARE. DISCUSSED WITH NURSING STAFF.MD IN AGREEMENT WITH PLAN OF CARE. Addendum: 04/06/21 at 1157 by JEAN HIDALGO RN Amended: Links added.
[2021-04-06 12:02] VITALS: BP 109/58
--- NOTE | 2021-04-06 15:00 | NUR ---
Pt's Nasal canula O2 sat dropped from 2 to 1. Pt was tolerating well, O2 sat in 97%. O2 via nasal canula was turn off and patient was able to tolerate. Nasal canula removed, non-rebreather mask remains in place, pt's saturation is 95%. Will continue to monitor.
[2021-04-06] MEDS ORDERED: Z GUARD REMEDY PASTE 57 GM TUBE TOP PRN (15:30)
[2021-04-06] MEDS: ACETAMINOPHEN 325 MG TABLET PO PRN ×2 (15:32→22:30)
[2021-04-06 16:08] VITALS: BP 106/51
--- NOTE | 2021-04-06 19:30 | NUR ---
RECEIVED PT AWAKE, ALERT AND ORIENTEDX4. PT IN NO ACUTE DISTRESS. IV INTACT. PT ON 15L NONEBREATHER MASK. SAFETY AND COMFORT PROVIDED. WILL CONTINUE TO MONITOR.
[2021-04-06 20:12] VITALS: BP 108/55
[2021-04-06] MEDS: ZOLPIDEM 5 MG TABLET PO PRN (21:10)
--- NOTE | 2021-04-06 22:45 | NUR ---
at 2109h AMBIEN PRN 10MG GIVEN TO PT ADS PER PT REQUEST AND ALSO TYLENOL 650 MG PRN GIVEN AT 2229H. PT STABLE AND IN NO ACUTE DISTRESS.
[2021-04-07 00:03] VITALS: BP 113/73
[2021-04-07 04:12] VITALS: BP 122/81
[2021-04-07] MEDS: PANTOPRAZOLE SODIUM 40 MG TABLET.DR PO SCH (06:10)
--- NOTE | 2021-04-07 06:26 | NUR ---
PT SLEPT INTERMITTENTLY. PT IN NO ACUTE DISTRESS. IV INTACT. PRESCRIBED MEDICATION GIVEN AND PT TOLERATED IT WELL. PT ON 13L NONREBREATHER MASK. PT OXYGEN SATURATION IS 95% . PT ON SINUS RHYTHM.SAFETY AND COMFORT PROVIDED. WALL NEEDS ARE MET. WILL ENDORSE TO INCOMING NURSE FOR CONTINUITY OF CARE.
[2021-04-07] MEDS: ACIDOPHILUS/BULGARICUS CHEW TAB PO SCH ×2 (08:11→22:12)
[2021-04-07] MEDS: ASCORBIC ACID 500 MG TABLET PO SCH (08:11)
[2021-04-07] MEDS: FUROSEMIDE 20 MG TABLET PO SCH (08:11)
[2021-04-07] MEDS: DEXAMETHASONE SOD PHOSPHATE 4 MG INJ IV SCH ×2 (08:11→22:12)
[2021-04-07] MEDS: MULTIVITAMINS,THERAPEUTIC TABLET PO SCH (08:11)
[2021-04-07] MEDS: FLUCONAZOLE 100 MG TABLET PO SCH (08:11)
[2021-04-07] MEDS: ZINC SULFATE 220 MG CAPSULE PO SCH (08:12)
[2021-04-07] MEDS: ASPIRIN EC 81 MG TABLET.DR PO SCH (08:12)
[2021-04-07] MEDS: CHOLECALCIFEROL 1,000 UNIT TABLET PO SCH (08:12)
[2021-04-07] MEDS: ENOXAPARIN SODIUM 40 MG/0.4 ML DISP.SYRIN SQ SCH (08:15)
[2021-04-07] MEDS: LOSARTAN POTASSIUM 25 MG TABLET PO SCH (08:22)
[2021-04-07 11:39] VITALS: BP 103/58
[2021-04-07 16:00] VITALS: BP 129/68
--- NOTE | 2021-04-07 18:22 | NUR ---
Patient resting in bed. AOx4. On 15L O2 via NRB mask, saturating 92-94%. No signs of acute distress. Patient denies pain/ discomfort. Patient denies SOB/ . NSR on vehicle monitor technician. IV access intact and patent. Bed alarm on. Call light within reach. Needs anticipated and met. Will endorse to incoming shift for continuity of care.
[2021-04-07 19:43] VITALS: BP 113/62
[2021-04-07] MEDS: ZOLPIDEM 5 MG TABLET PO PRN (22:12)
[2021-04-07] MEDS: ACETAMINOPHEN 325 MG TABLET PO PRN (22:12)
[2021-04-08 00:12] VITALS: BP 105/67
[2021-04-08 04:40] VITALS: BP 105/62
--- NOTE | 2021-04-08 04:45 | NUR ---
Patient rested well in between care; repositioned q2h; safety maintained; wound care done; needs attended; continue to monitor; continue plan of care.
[2021-04-08] MEDS: PANTOPRAZOLE SODIUM 40 MG TABLET.DR PO SCH (06:11)
--- NOTE | 2021-04-08 07:20 | NUR ---
Patient resting in bed. AOx4. on 15L O2 via NC, saturating 95%. No signs of acute distress. Patient denies pain/ discomfort. Patient denies SOB/ . Call light within reach. Will continue to monitor.
[2021-04-08 07:32] LABS: CREATININE 0.6 mg/dL (0.6-1.3); MAGNESIUM 2.2 mg/dL (1.8-2.4); PHOSPHOROUS 3.9 mg/dL (2.5-4.9); POTASSIUM 4.3 mmol/L (3.5-5.1)
[2021-04-08 07:54] LABS: MEAN CORPUSCULAR HEMOGLOBIN 28.8 uug (24.7-32.8); MEAN CORPUSCULAR VOLUME 87.9 fL (75.5-95.3); PLATELET COUNT (AUTO) 154 K/uL (179-408)
[2021-04-08] MEDS: ASCORBIC ACID 500 MG TABLET PO SCH (08:54)
[2021-04-08] MEDS: DEXAMETHASONE SOD PHOSPHATE 4 MG INJ IV SCH ×2 (08:54→20:24)
[2021-04-08] MEDS: ACIDOPHILUS/BULGARICUS CHEW TAB PO SCH ×2 (08:54→20:24)
[2021-04-08] MEDS: MULTIVITAMINS,THERAPEUTIC TABLET PO SCH (08:54)
[2021-04-08] MEDS: CHOLECALCIFEROL 1,000 UNIT TABLET PO SCH (08:54)
[2021-04-08] MEDS: FUROSEMIDE 20 MG TABLET PO SCH (08:55)
[2021-04-08] MEDS: ASPIRIN EC 81 MG TABLET.DR PO SCH (08:55)
[2021-04-08] MEDS: ZINC SULFATE 220 MG CAPSULE PO SCH (08:55)
[2021-04-08] MEDS: FLUCONAZOLE 100 MG TABLET PO SCH (08:55)
[2021-04-08] MEDS: LOSARTAN POTASSIUM 25 MG TABLET PO SCH (09:00)
[2021-04-08] MEDS: ENOXAPARIN SODIUM 40 MG/0.4 ML DISP.SYRIN SQ SCH (09:13)
[2021-04-08 12:00] VITALS: BP 138/67
[2021-04-08 16:00] VITALS: BP 122/74
[2021-04-08] MEDS: ACETAMINOPHEN 325 MG TABLET PO PRN (17:34)
[2021-04-08 20:21] VITALS: BP 118/68
[2021-04-08] MEDS: ZOLPIDEM 5 MG TABLET PO PRN (20:23)
[2021-04-09 00:51] VITALS: BP 118/79
[2021-04-09 04:28] VITALS: BP 111/69
[2021-04-09] MEDS: PANTOPRAZOLE SODIUM 40 MG TABLET.DR PO SCH (06:23)
--- NOTE | 2021-04-09 07:30 | NUR ---
RECEIVED PT AWAKE , ALERT AND ORIENTEDX4. PT IN NO ACUTE DISTRESS.PT ON SINUS RHYTHM. PT ON 15L NONREBREATHER MASK. IV INTACT. SAFETY AND COMFORT PROVIDED. WILL CONTINUE TO MONITOR.
[2021-04-09 08:00] VITALS: BP 107/68
[2021-04-09] MEDS: DEXAMETHASONE SOD PHOSPHATE 4 MG INJ IV SCH ×2 (08:06→20:51)
[2021-04-09] MEDS: ACIDOPHILUS/BULGARICUS CHEW TAB PO SCH ×2 (08:06→20:51)
[2021-04-09] MEDS: ASPIRIN EC 81 MG TABLET.DR PO SCH (08:06)
[2021-04-09] MEDS: FUROSEMIDE 20 MG TABLET PO SCH (08:07)
[2021-04-09] MEDS: ASCORBIC ACID 500 MG TABLET PO SCH (08:07)
[2021-04-09] MEDS: FLUCONAZOLE 100 MG TABLET PO SCH (08:08)
[2021-04-09] MEDS: ZINC SULFATE 220 MG CAPSULE PO SCH (08:08)
[2021-04-09] MEDS: MULTIVITAMINS,THERAPEUTIC TABLET PO SCH (08:08)
[2021-04-09] MEDS: CHOLECALCIFEROL 1,000 UNIT TABLET PO SCH (08:08)
[2021-04-09] MEDS: ENOXAPARIN SODIUM 40 MG/0.4 ML DISP.SYRIN SQ SCH (08:09)
[2021-04-09] MEDS: LOSARTAN POTASSIUM 25 MG TABLET PO SCH (09:00)
--- NOTE | 2021-04-09 10:49 | NUR ---
PT IN NO ACUTE DISTRESS. PRESCRIBED MEDICATION GIVEN AND PT TOLERATED IT WELL. PT STABLE.PT IV INTACT. SAFETY AND COMFORT PROVIDED.PT ON 15L NONREBREATHER MASK. WILL ENDORSE FOR CONTINUITY OF CARE.
--- NOTE | 2021-04-09 11:45 | NUR ---
took over care from am RN, pt resting in bed in a sitting position, on NRB 15L/mask, feels fine at rest, call light within reach, needs attended and met
[2021-04-09 12:00] VITALS: BP 124/72
--- NOTE | 2021-04-09 15:00 | NUR ---
MRSA swab sent to lab
[2021-04-09 16:21] VITALS: BP 126/73
--- NOTE | 2021-04-09 19:02 | NUR ---
remains on NRB 15L- no distress noted, safety measures maintained, all needs attended and met, call light within reach
[2021-04-09] MEDS: ZOLPIDEM 5 MG TABLET PO PRN (20:51)
[2021-04-09] MEDS: ACETAMINOPHEN 325 MG TABLET PO PRN (20:51)
[2021-04-09 21:05] VITALS: BP 105/58
[2021-04-10 00:34] VITALS: BP 112/71
[2021-04-10 04:00] VITALS: BP 93/75
[2021-04-10] MEDS: PANTOPRAZOLE SODIUM 40 MG TABLET.DR PO SCH (05:56)
--- NOTE | 2021-04-10 07:30 | NUR ---
received patient laying in bed in no apparent distress. patient is alert and oriented x4 and able to make needs known. patient currently on 15l non-rebreather with spo2 93% but quickly desaturates with exertion. v/s 108/72, p: 95 rr: 19, t: 98.1, spo2 94% on 14 nrb. patient denies any pain at this time. reminded to use call light for help, side rails upx2, will monitor.
[2021-04-10] MEDS: ENOXAPARIN SODIUM 40 MG/0.4 ML DISP.SYRIN SQ SCH (08:16)
[2021-04-10] MEDS: CHOLECALCIFEROL 1,000 UNIT TABLET PO SCH (08:28)
[2021-04-10] MEDS: ACIDOPHILUS/BULGARICUS CHEW TAB PO SCH ×2 (08:28→20:02)
[2021-04-10] MEDS: ASPIRIN EC 81 MG TABLET.DR PO SCH (08:29)
[2021-04-10] MEDS: FUROSEMIDE 20 MG TABLET PO SCH (08:29)
[2021-04-10] MEDS: DEXAMETHASONE SOD PHOSPHATE 4 MG INJ IV SCH ×2 (08:29→20:02)
[2021-04-10] MEDS: ASCORBIC ACID 500 MG TABLET PO SCH (08:29)
[2021-04-10] MEDS: ZINC SULFATE 220 MG CAPSULE PO SCH (08:34)
[2021-04-10] MEDS: MULTIVITAMINS,THERAPEUTIC TABLET PO SCH (08:34)
[2021-04-10] MEDS: LOSARTAN POTASSIUM 25 MG TABLET PO SCH (08:55)
--- NOTE | 2021-04-10 11:21 | NUR ---
received a call from Elia DTR asking about visiting, explained i would ask the nursing customer facilities supervisor and return her call. Called Elia back and made her aware that per customer facilities supervisor she can visit, maximum 2 people in the room, proper ppe must be worn and she must be covid vaccinated or show proof of a negative test, Elia expressed understanding.
[2021-04-10 12:00] VITALS: BP 107/68
[2021-04-10 16:00] VITALS: BP 139/90
--- NOTE | 2021-04-10 19:30 | NUR ---
Received patient sitting upright in bed. AAOx4. In no apparent distress. Denies any pain or SOB. On O2 at 15LPM via non-rebreather mask. O2 sat at 97%. No coughing noted. NSR on tele with HR of 88/min. Right UA midline intact and patent. Needs assessed and attended to. Safety measure initiated and call acosta within reached.
[2021-04-10 20:20] VITALS: BP 115/69
[2021-04-10] MEDS: ZOLPIDEM 5 MG TABLET PO PRN (22:14)
[2021-04-10] MEDS: ACETAMINOPHEN 325 MG TABLET PO PRN (22:14)
[2021-04-11 00:10] VITALS: BP 110/70
[2021-04-11 04:15] VITALS: BP 115/70
[2021-04-11] MEDS: PANTOPRAZOLE SODIUM 40 MG TABLET.DR PO SCH (06:12)
--- NOTE | 2021-04-11 06:22 | NUR ---
Slept well last night. Denies any pain or SOB. On O2 at 15LPM via non-rebreather mask. O2 sat at 96%. NSR on tele with HR of 88/min. Right UA midline remains intact and patent. Needs attended to and met. Safety measure maintained and call acosta within reached.
[2021-04-11] MEDS: LOSARTAN POTASSIUM 25 MG TABLET PO SCH (09:00)
[2021-04-11] MEDS: DEXAMETHASONE SOD PHOSPHATE 4 MG INJ IV SCH ×2 (09:08→20:03)
[2021-04-11] MEDS: CHOLECALCIFEROL 1,000 UNIT TABLET PO SCH (09:08)
[2021-04-11] MEDS: ASCORBIC ACID 500 MG TABLET PO SCH (09:09)
[2021-04-11] MEDS: MULTIVITAMINS,THERAPEUTIC TABLET PO SCH (09:09)
[2021-04-11] MEDS: FUROSEMIDE 20 MG TABLET PO SCH (09:09)
[2021-04-11] MEDS: ACIDOPHILUS/BULGARICUS CHEW TAB PO SCH ×2 (09:09→20:03)
[2021-04-11] MEDS: ASPIRIN EC 81 MG TABLET.DR PO SCH (09:09)
[2021-04-11] MEDS: ZINC SULFATE 220 MG CAPSULE PO SCH (09:13)
[2021-04-11] MEDS: ENOXAPARIN SODIUM 40 MG/0.4 ML DISP.SYRIN SQ SCH (09:13)
[2021-04-11 12:00] VITALS: BP 105/66
[2021-04-11 16:00] VITALS: BP 116/61
--- NOTE | 2021-04-11 19:45 | NUR ---
Patient in bed AAOx4. In no apparent distress. On O2 at 15LPM via non-rebreather mask. O2 sat at 97%. NSR on tele.Right UA midline intact and patent.Flushes well.Continue Safety measures Call acosta within reached. Will continue to monitor.
[2021-04-11 20:45] VITALS: BP 113/63
[2021-04-11] MEDS: ACETAMINOPHEN 325 MG TABLET PO PRN (23:07)
[2021-04-11] MEDS: ZOLPIDEM 5 MG TABLET PO PRN (23:07)
[2021-04-12] VITALS (7 sets, daily range): BP systolic 106–117; BP diastolic 65–77
[2021-04-12] MEDS: PANTOPRAZOLE SODIUM 40 MG TABLET.DR PO SCH (06:08)
--- NOTE | 2021-04-12 08:00 | NUR ---
received change of shift report. pt in bed resting, on 15L nonrebreather saturating at 98%, no signs of distress, no reports of pain at this time. pt a/ox4, skin tears on the buttocks an gluteal crease covered with mepilex. pt on tele monitor, NSR. pt able to transfer to bedside commode with assist. IV access on the right UA ML hep locked. bed low and locked, call light within reach, will continue with plan of care.
[2021-04-12] MEDS: ACIDOPHILUS/BULGARICUS CHEW TAB PO SCH ×2 (08:24→20:53)
[2021-04-12] MEDS: ASPIRIN EC 81 MG TABLET.DR PO SCH (08:24)
[2021-04-12] MEDS: ZINC SULFATE 220 MG CAPSULE PO SCH (08:24)
[2021-04-12] MEDS: MULTIVITAMINS,THERAPEUTIC TABLET PO SCH (08:25)
[2021-04-12] MEDS: CHOLECALCIFEROL 1,000 UNIT TABLET PO SCH (08:25)
[2021-04-12] MEDS: FUROSEMIDE 20 MG TABLET PO SCH (08:25)
[2021-04-12] MEDS: ASCORBIC ACID 500 MG TABLET PO SCH (08:25)
[2021-04-12] MEDS: LOSARTAN POTASSIUM 25 MG TABLET PO SCH (08:26)
[2021-04-12] MEDS: DEXAMETHASONE SOD PHOSPHATE 4 MG INJ IV SCH ×2 (08:26→20:54)
[2021-04-12] MEDS: ENOXAPARIN SODIUM 40 MG/0.4 ML DISP.SYRIN SQ SCH (08:27)
--- NOTE | 2021-04-12 13:00 | NUR ---
titrated pt down to 14L on nonrebreather, pt unable to tolerate as she desaturated to 88% from 95%. will continue to monitor.
--- NOTE | 2021-04-12 15:30 | NUR ---
pt daughter at beside, concerned about pt being close to covid rooms and as to why room has plastic barrier. educated pt and family about situation, they verbalized understanding. will continue with plan of care.
--- NOTE | 2021-04-12 18:43 | NUR ---
family at bedside stated that they had sent pt an arrangement of cotter, which were then left outside the room, according to pt she stated, "the cotter were left outside the room and , then I saw that they were gone." pt room was checking to see if vase was in drawers, nothing there. family was given [employer]'s information to follow up with tomorrow. will endorse to oncoming nurse.
--- NOTE | 2021-04-12 18:47 | NUR ---
attempted to titrate pt down from 15L to down to 14L, pt started to desat, was getting anxious, and breathing faster, stating she could not feel the oxygen. kept pt on 15L, will endorse to car shifter to titrate as tolerated. pt using bedside commode, transfers with assist, slowly, pt does desaturate to 84%, takes some time to get back to 93% with resting in between.
--- NOTE | 2021-04-12 19:55 | NUR ---
Patient in bed, alert and able to make needs known.Remains on NRB 15L ,no s/s of distress noted. Safety measures maintained.Call light within reach.
[2021-04-12] MEDS: ACETAMINOPHEN 325 MG TABLET PO PRN (22:59)
[2021-04-12] MEDS: ZOLPIDEM 5 MG TABLET PO PRN (23:27)
[2021-04-13 04:15] VITALS: BP 142/67
[2021-04-13] MEDS: PANTOPRAZOLE SODIUM 40 MG TABLET.DR PO SCH (06:04)
[2021-04-13 08:46] VITALS: BP 136/58
[2021-04-13] MEDS: ACIDOPHILUS/BULGARICUS CHEW TAB PO SCH ×2 (08:47→20:46)
[2021-04-13] MEDS: DEXAMETHASONE SOD PHOSPHATE 4 MG INJ IV SCH ×2 (08:47→20:47)
[2021-04-13] MEDS: LOSARTAN POTASSIUM 25 MG TABLET PO SCH (08:47)
[2021-04-13] MEDS: ZINC SULFATE 220 MG CAPSULE PO SCH (08:47)
[2021-04-13] MEDS: ASCORBIC ACID 500 MG TABLET PO SCH (08:48)
[2021-04-13] MEDS: MULTIVITAMINS,THERAPEUTIC TABLET PO SCH (08:48)
[2021-04-13] MEDS: ASPIRIN EC 81 MG TABLET.DR PO SCH (08:48)
[2021-04-13] MEDS: CHOLECALCIFEROL 1,000 UNIT TABLET PO SCH (08:49)
[2021-04-13] MEDS: ENOXAPARIN SODIUM 40 MG/0.4 ML DISP.SYRIN SQ SCH (08:50)
[2021-04-13] MEDS: FUROSEMIDE 20 MG TABLET PO SCH (08:51)
[2021-04-13 11:04] VITALS: BP 137/102
[2021-04-13 15:16] VITALS: BP 103/60
--- NOTE | 2021-04-13 17:54 | NUR ---
Pt kept on 15L NRB, unable to titrate down O2 as pt desats down to 85-88%. Pt also tends to desat during activity/exertion. Otherwise 94-96% on NRB. Denies any acute distress. Comfort care and needs attended. Range of motion exercises done with PT. Educated pt on the importance of continuous usage of incentive spirometer. Plan to continue with cardiac and oxygen monitoring. Fall precaution maintained. Will endorse to oncoming nurse.
--- NOTE | 2021-04-13 20:00 | NUR ---
RECEIVED PATIENT AWAKE IN BED. A/O X4. DENIES ANY PAIN OR DISCOMFORT. NO RESP. DISTRESS NOTED, BUT DOES GET EASILY SOB WHEN MASK IS REMOVED TO CHECK TEMPERATURE. ON 15L NON-REBREATHER SATING 98%. H/L INTACT AND PATENT. CALL LIGHT IN REACH. ALL NEEDS ATTENDED. WILL CONTINUE TO MONITOR AND ASSESS.
[2021-04-13 20:20] VITALS: BP 126/69
[2021-04-13] MEDS: ZOLPIDEM 5 MG TABLET PO PRN (22:49)
[2021-04-13] MEDS: ACETAMINOPHEN 325 MG TABLET PO PRN (22:50)
[2021-04-14 00:03] VITALS: BP 135/67
[2021-04-14 04:20] VITALS: BP 135/70
[2021-04-14] MEDS: PANTOPRAZOLE SODIUM 40 MG TABLET.DR PO SCH (06:20)
--- NOTE | 2021-04-14 07:00 | NUR ---
PATIENT IS ALERT/ORIENTED. DENIES PAIN. NO DISTRESS IDENTIFIED. ON CONTINUOUS 02 15L NON REBREATHER, SATURATING AT 94-97%. ASSISTED WITH THE COMMODE. KEPT CALL LIGHT WITHIN REACH. WILL CONTINUE TO MONITOR FOR ANY CONCERN/CHANGES.
[2021-04-14 07:23] LABS: HEMATOCRIT 37.7 % (31.2-41.9); MEAN CORPUSCULAR HEMOGLOBIN 28.6 uug (24.7-32.8); MEAN CORPUSCULAR VOLUME 89.9 fL (75.5-95.3); PLATELET COUNT (AUTO) 230 K/uL (179-408)
[2021-04-14 08:17] LABS: BILIRUBIN,DIRECT 0.1 mg/dL (0.0-0.2); BILIRUBIN,TOTAL 0.3 mg/dL (0.2-1.0); CREATININE 0.6 mg/dL (0.6-1.3); MAGNESIUM 2.1 mg/dL (1.8-2.4); PHOSPHOROUS 3.4 mg/dL (2.5-4.9); POTASSIUM 3.5 mmol/L (3.5-5.1); TOTAL PROTEIN, SERUM 5.4 g/dL (6.4-8.2)
[2021-04-14] MEDS: ENOXAPARIN SODIUM 40 MG/0.4 ML DISP.SYRIN SQ SCH (08:19)
[2021-04-14] MEDS: DEXAMETHASONE SOD PHOSPHATE 4 MG INJ IV SCH ×2 (08:44→20:56)
[2021-04-14] MEDS: MULTIVITAMINS,THERAPEUTIC TABLET PO SCH (08:44)
[2021-04-14] MEDS: LOSARTAN POTASSIUM 25 MG TABLET PO SCH (08:44)
[2021-04-14] MEDS: ACIDOPHILUS/BULGARICUS CHEW TAB PO SCH ×2 (08:44→20:56)
[2021-04-14] MEDS: ASPIRIN EC 81 MG TABLET.DR PO SCH (08:44)
[2021-04-14] MEDS: CHOLECALCIFEROL 1,000 UNIT TABLET PO SCH (08:44)
[2021-04-14] MEDS: ZINC SULFATE 220 MG CAPSULE PO SCH (08:44)
[2021-04-14] MEDS: FUROSEMIDE 20 MG TABLET PO SCH (08:45)
[2021-04-14] MEDS: ASCORBIC ACID 500 MG TABLET PO SCH (08:45)
[2021-04-14 12:00] VITALS: BP 107/75
[2021-04-14] MEDS: LIDOCAINE VISCUS 2% 15 ML UDC MM PRN ×2 (13:09→16:39)
[2021-04-14 16:00] VITALS: BP 102/52
--- NOTE | 2021-04-14 18:28 | NUR ---
PATIENT IS NOTED WITH DESATURATION OF 85-88% WITH EXERTION, NEEDS REST IN BETWEEN MOVEMENT OR TRANSFER TO THE COMMODE. APPLIED ZGUARD AND MEPILEX TO SACRAL AREA. ALL DUE MEDS GIVEN ORDERED. ALL NEEDS ATTENDED. NO OTHER CONCERN IDENTIFIED DURING THE SHIFT. WILL ENDORSE TO THE NEXT SHIFT FOR CONTINUITY OF CARE.
[2021-04-14 20:10] VITALS: BP 116/66
--- NOTE | 2021-04-14 20:30 | NUR ---
Received report from VENITA Kaur. Patient is awake, lying in bed, resting comfortably. A/Ox4. Denies pain at this time. No signs of acute distress noted. On rebreather mask @15LPM, with O2 sat of 98%. Able to make needs known with assistance. Checked IV site patent and flushed. No erythema, bleeding or infiltration noted. Bed at lowest position, brakes on, siderails x2. Call light within reach. Will continue to monitor.
[2021-04-14] MEDS: ZOLPIDEM 5 MG TABLET PO PRN (21:02)
[2021-04-14] MEDS: ACETAMINOPHEN 325 MG TABLET PO PRN (22:10)
[2021-04-15] VITALS: BP 110/70
--- NOTE | 2021-04-15 01:52 | NUR ---
Resting comfortably. No significant change of condition noted. Will continue to monitor.
[2021-04-15 04:00] VITALS: BP 115/75
[2021-04-15] MEDS: PANTOPRAZOLE SODIUM 40 MG TABLET.DR PO SCH (06:33)
--- NOTE | 2021-04-15 07:00 | NUR ---
RECEIVED PATIENT AWAKE/ALERT, ON NON REBREATHER AT 15L. NO DISTRESS IDENTIFIED. KEPT CALL LIGHT WITHIN REACH. WILL CONTINUE TO MONITOR.
--- NOTE | 2021-04-15 07:02 | NUR ---
Patient is awake, lying in bed, resting comfortably, on Non rebreather mask; no acute distress noted.
[2021-04-15] MEDS: ENOXAPARIN SODIUM 40 MG/0.4 ML DISP.SYRIN SQ SCH (08:45)
[2021-04-15] MEDS: CHOLECALCIFEROL 1,000 UNIT TABLET PO SCH (08:45)
[2021-04-15] MEDS: ZINC SULFATE 220 MG CAPSULE PO SCH (08:45)
[2021-04-15] MEDS: ACIDOPHILUS/BULGARICUS CHEW TAB PO SCH ×2 (08:45→20:16)
[2021-04-15] MEDS: ASCORBIC ACID 500 MG TABLET PO SCH (08:45)
[2021-04-15] MEDS: DEXAMETHASONE SOD PHOSPHATE 4 MG INJ IV SCH ×2 (08:45→20:16)
[2021-04-15] MEDS: ASPIRIN EC 81 MG TABLET.DR PO SCH (08:46)
[2021-04-15] MEDS: FUROSEMIDE 20 MG TABLET PO SCH (08:46)
[2021-04-15] MEDS: MULTIVITAMINS,THERAPEUTIC TABLET PO SCH (08:46)
[2021-04-15] MEDS: LOSARTAN POTASSIUM 25 MG TABLET PO SCH (09:00)
--- NOTE | 2021-04-15 10:03 | NUR ---
WOUND CARE FOLLOW UP: PT HAS SOME INCONTINENCE ASSOCIATED SKIN DAMAGE WITH SOME ITCHING TO GLUTEAL CREASE AND BUTTOCKS. SOME IMPROVEMENT NOTED TO BUTTOCKS. TREATMENT PLAN UPDATED AND DISCUSSED WITH PT AND NURSING STAFF. PT IS MOSTLY CONTINENT BUT HAS SOME MOISTURE ISSUES AT TIMES. MD IN AGREEMENT WITH PLAN OF CARE.
[2021-04-15 11:00] VITALS: BP 140/75
[2021-04-15 16:00] VITALS: BP 139/77
[2021-04-15] MEDS: CLOTRIMAZOLE 1% CREAM 30 GM TUBE TOP SCH (17:11)
--- NOTE | 2021-04-15 19:55 | NUR ---
PATIENT AALOX4 .DENIES PAIN. ON CONTINUOUS 15L NON REBREATHER, SATURATING AT 96%HOB ELEVATED. KEPT CALL LIGHT WITHIN REACH. WILL CONTINUE TO MONITOR FOR ANY CONCERN/CHANGES.
[2021-04-15 20:15] VITALS: BP 122/64
[2021-04-15] MEDS: ACETAMINOPHEN 325 MG TABLET PO PRN (22:28)
[2021-04-15] MEDS: ZOLPIDEM 5 MG TABLET PO PRN (23:03)
[2021-04-16 00:03] VITALS: BP 120/70
[2021-04-16 04:08] VITALS: BP 120/70
[2021-04-16] MEDS: PANTOPRAZOLE SODIUM 40 MG TABLET.DR PO SCH (06:03)
[2021-04-16] MEDS: DEXAMETHASONE SOD PHOSPHATE 4 MG INJ IV SCH ×2 (08:11→21:10)
[2021-04-16] MEDS: ZINC SULFATE 220 MG CAPSULE PO SCH (08:15)
[2021-04-16] MEDS: ASCORBIC ACID 500 MG TABLET PO SCH (08:15)
[2021-04-16] MEDS: ACIDOPHILUS/BULGARICUS CHEW TAB PO SCH ×2 (08:16→21:10)
[2021-04-16] MEDS: MULTIVITAMINS,THERAPEUTIC TABLET PO SCH (08:16)
[2021-04-16] MEDS: FUROSEMIDE 20 MG TABLET PO SCH (08:16)
[2021-04-16] MEDS: ASPIRIN EC 81 MG TABLET.DR PO SCH (08:16)
[2021-04-16] MEDS: LOSARTAN POTASSIUM 25 MG TABLET PO SCH (08:16)
[2021-04-16] MEDS: CHOLECALCIFEROL 1,000 UNIT TABLET PO SCH (08:16)
[2021-04-16] MEDS: ENOXAPARIN SODIUM 40 MG/0.4 ML DISP.SYRIN SQ SCH (09:04)
[2021-04-16] MEDS: CLOTRIMAZOLE 1% CREAM 30 GM TUBE TOP SCH ×2 (09:04→16:00)
[2021-04-16 12:00] VITALS: BP 95/64
[2021-04-16] MEDS: DOCUSATE SODIUM 100 MG CAPSULE PO SCH ×2 (12:37→21:10)
[2021-04-16] MEDS: ACETAMINOPHEN 325 MG TABLET PO PRN ×2 (15:59→22:39)
[2021-04-16 16:00] VITALS: BP 124/73
--- NOTE | 2021-04-16 19:30 | NUR ---
RECEIVED PT AWAKE, ALERT AND ORIENTEDX4. PT ON 15 NONREBREATHER MASK. DAUGHTER AT BEDSIDE. SAFETY AND COMFORT PROVIDED. WILL CONTINUE TO MONITOR.
[2021-04-16 20:00] VITALS: BP 116/70
[2021-04-16] MEDS: ZOLPIDEM 5 MG TABLET PO PRN (22:39)
[2021-04-16 23:57] VITALS: BP 117/62
[2021-04-17 04:00] VITALS: BP 130/73
--- NOTE | 2021-04-17 06:12 | NUR ---
PT SLEPT INTERMITTENTLY. PT IN NO ACUTE DISTRESS.PT STABLE. IV INTACT. PT ON SINUS RHYTHM. PT ON 15 NONREBREATHER MASK. PT GIVEN TYLENOL 650 MG AT 2239H AND AMBIEN PRN AT 2239H PER PT REQUEST. PRESCRIBED MEDICATION GIVEN AND PT TOLERATED IT WELL. SAFETY AND COMFORT PROVIDED. WILL ENDORSE TO INCOMING NURSE FOR CONTINUITY OF CARE.
[2021-04-17] MEDS: PANTOPRAZOLE SODIUM 40 MG TABLET.DR PO SCH (06:22)
[2021-04-17] MEDS: ASPIRIN EC 81 MG TABLET.DR PO SCH (09:21)
[2021-04-17] MEDS: DEXAMETHASONE SOD PHOSPHATE 4 MG INJ IV SCH ×2 (09:21→20:22)
[2021-04-17] MEDS: FUROSEMIDE 20 MG TABLET PO SCH (09:21)
[2021-04-17] MEDS: ZINC SULFATE 220 MG CAPSULE PO SCH (09:22)
[2021-04-17] MEDS: DOCUSATE SODIUM 100 MG CAPSULE PO SCH ×2 (09:22→20:22)
[2021-04-17] MEDS: MULTIVITAMINS,THERAPEUTIC TABLET PO SCH (09:22)
[2021-04-17] MEDS: CHOLECALCIFEROL 1,000 UNIT TABLET PO SCH (09:22)
[2021-04-17] MEDS: ASCORBIC ACID 500 MG TABLET PO SCH (09:22)
[2021-04-17] MEDS: CLOTRIMAZOLE 1% CREAM 30 GM TUBE TOP SCH ×2 (09:23→16:46)
[2021-04-17] MEDS: ENOXAPARIN SODIUM 40 MG/0.4 ML DISP.SYRIN SQ SCH (09:27)
[2021-04-17] MEDS: LOSARTAN POTASSIUM 25 MG TABLET PO SCH (09:34)
[2021-04-17] MEDS: ACIDOPHILUS/BULGARICUS CHEW TAB PO SCH ×2 (09:49→20:22)
[2021-04-17 11:26] VITALS: BP 107/87
[2021-04-17 16:19] VITALS: BP 112/54
--- NOTE | 2021-04-17 18:40 | NUR ---
no acute distress noted, patient still on nonrebreather 15 liters. tolerated fairly going to bedside commode and back to bed, educated patient to turning on her side to prevent pressure sores, patient verbalized understanding of it.
[2021-04-17 20:15] VITALS: BP 120/61
[2021-04-17] MEDS: ZOLPIDEM 5 MG TABLET PO PRN (22:18)
[2021-04-17] MEDS: ACETAMINOPHEN 325 MG TABLET PO PRN (22:19)
[2021-04-18 00:10] VITALS: BP 128/75
[2021-04-18 04:20] VITALS: BP 119/90
[2021-04-18] MEDS: PANTOPRAZOLE SODIUM 40 MG TABLET.DR PO SCH (05:45)
[2021-04-18] MEDS: ACETAMINOPHEN 325 MG TABLET PO PRN ×2 (05:45→15:40)
[2021-04-18] MEDS: MULTIVITAMINS,THERAPEUTIC TABLET PO SCH (09:02)
[2021-04-18] MEDS: LOSARTAN POTASSIUM 25 MG TABLET PO SCH (09:02)
[2021-04-18] MEDS: DOCUSATE SODIUM 100 MG CAPSULE PO SCH ×2 (09:02→20:28)
[2021-04-18] MEDS: ASCORBIC ACID 500 MG TABLET PO SCH (09:02)
[2021-04-18] MEDS: FUROSEMIDE 20 MG TABLET PO SCH (09:02)
[2021-04-18] MEDS: DEXAMETHASONE SOD PHOSPHATE 4 MG INJ IV SCH ×2 (09:03→20:28)
[2021-04-18] MEDS: ZINC SULFATE 220 MG CAPSULE PO SCH (09:03)
[2021-04-18] MEDS: ACIDOPHILUS/BULGARICUS CHEW TAB PO SCH ×2 (09:03→20:28)
[2021-04-18] MEDS: CHOLECALCIFEROL 1,000 UNIT TABLET PO SCH (09:03)
[2021-04-18] MEDS: ASPIRIN EC 81 MG TABLET.DR PO SCH (09:03)
[2021-04-18] MEDS: CLOTRIMAZOLE 1% CREAM 30 GM TUBE TOP SCH ×2 (09:04→17:05)
[2021-04-18 12:00] VITALS: BP 95/68
[2021-04-18 16:23] VITALS: BP 122/73
[2021-04-18 20:15] VITALS: BP 109/69
[2021-04-18] MEDS: ZOLPIDEM 5 MG TABLET PO PRN (22:37)
[2021-04-19 00:25] VITALS: BP 98/59
[2021-04-19] MEDS: ACETAMINOPHEN 325 MG TABLET PO PRN ×3 (00:28→22:02)
[2021-04-19 04:56] VITALS: BP 126/70
[2021-04-19] MEDS: PANTOPRAZOLE SODIUM 40 MG TABLET.DR PO SCH (06:02)
--- NOTE | 2021-04-19 06:23 | NUR ---
Patient awake alertx 4,still on nonrebreather 15 liters. SOB noted when exertion.Midline patent and intact on right upper arm. Medication given as ordered. Wound care provided on kj buttock. Tolerated well. Call light with in reach.
[2021-04-19 07:36] LABS: HEMATOCRIT 36.3 % (31.2-41.9); MEAN CORPUSCULAR VOLUME 89.3 fL (75.5-95.3); PLATELET COUNT (AUTO) 272 K/uL (179-408)
[2021-04-19 07:50] LABS: CARBON DIOXIDE 37 mmol/L (21-32); CHLORIDE 96 mmol/L (98-107); CREATININE 0.5 mg/dL (0.6-1.3); GLUCOSE 212 mg/dL (74-106); PHOSPHOROUS 3.7 mg/dL (2.5-4.9); POTASSIUM 4.2 mmol/L (3.5-5.1); UREA NITROGEN, BLOOD 17 mg/dL (7-18)
[2021-04-19] MEDS: ZINC SULFATE 220 MG CAPSULE PO SCH (09:22)
[2021-04-19] MEDS: DOCUSATE SODIUM 100 MG CAPSULE PO SCH ×2 (09:22→21:00)
[2021-04-19] MEDS: LOSARTAN POTASSIUM 25 MG TABLET PO SCH (09:23)
[2021-04-19] MEDS: FUROSEMIDE 20 MG TABLET PO SCH (09:23)
[2021-04-19] MEDS: CHOLECALCIFEROL 1,000 UNIT TABLET PO SCH (09:23)
[2021-04-19] MEDS: MULTIVITAMINS,THERAPEUTIC TABLET PO SCH (09:24)
[2021-04-19] MEDS: ASPIRIN EC 81 MG TABLET.DR PO SCH (09:24)
[2021-04-19] MEDS: ASCORBIC ACID 500 MG TABLET PO SCH (09:24)
[2021-04-19] MEDS: DEXAMETHASONE SOD PHOSPHATE 4 MG INJ IV SCH ×2 (09:24→21:00)
[2021-04-19] MEDS: ACIDOPHILUS/BULGARICUS CHEW TAB PO SCH ×2 (09:30→21:00)
[2021-04-19] MEDS: CLOTRIMAZOLE 1% CREAM 30 GM TUBE TOP SCH ×2 (09:31→17:06)
[2021-04-19 12:00] VITALS: BP 129/84
[2021-04-19] MEDS ORDERED: PIPERACILLIN SODIUM/TAZOBACTAM 3.375 G in IV DEXTROSE 5% 50 ML IV ONE (14:00)
[2021-04-19] MEDS ORDERED: PIPERACILLIN SODIUM/TAZOBACTAM 3.375 G in IV DEXTROSE 5% 50 ML IV SCH (14:00)
[2021-04-19 16:00] VITALS: BP 111/65
--- NOTE | 2021-04-19 17:40 | NUR ---
No distress identified during the shift. patient remained stable. requested for x1 prn pain medication. will continue to monitor.
[2021-04-19 20:57] VITALS: BP 123/77
[2021-04-19] MEDS: PIPERACILLIN SODIUM/TAZOBACTAM 3.375 G in IV DEXTROSE 5% 100 ML IV SCH (21:00)
[2021-04-19] MEDS: ZOLPIDEM 5 MG TABLET PO PRN (21:55)
--- NOTE | 2021-04-19 23:45 | NUR ---
HANDS OFF REPORT RECEIVED FROM SEPTEMBER RN. PT STABLE. PT IN NO ACUTE DISTRESS. PT ON 15L NONREBREATHER MASK. PT ON SINUS RHYTHM .WILL CONTINUE TO MONITOR.
--- NOTE | 2021-04-19 23:46 | NUR ---
NO DISTRESS IDENTIFIED DURING THE SHIFT. ALL DUE MEDS GIVEN. ALL NEEDS ATTENDED. WILL ENDORSE FOR CONTINUITY OF CARE.
[2021-04-20 00:43] VITALS: BP 126/74
--- NOTE | 2021-04-20 02:45 | NUR ---
THE PT ACCIDENTALLY TOOK OFF HER NONREBREATHER MASK AND OXYGEN SATURATION WAS 45.PUT THE NONREBREATHER MASK ON AND 6L NASAL CANNULA UNTIL HER OXYGEN IS BACK TO 90%AND ABOVE. RESPIRATORY THERAPIST AWARE. RECENT OXYGEN WAS 96% NONREBREATHER MASK. PT IN NO ACUTE RESPIRATORY DISTRESS. WILL CONTINUE TO MONITOR.
[2021-04-20 04:35] VITALS: BP 125/88
[2021-04-20] MEDS: PIPERACILLIN SODIUM/TAZOBACTAM 3.375 G in IV DEXTROSE 5% 100 ML IV SCH ×3 (05:07→21:22)
[2021-04-20] MEDS: ACETAMINOPHEN 325 MG TABLET PO PRN (05:21)
[2021-04-20] MEDS: PANTOPRAZOLE SODIUM 40 MG TABLET.DR PO SCH (06:03)
--- NOTE | 2021-04-20 06:13 | NUR ---
PT SLEPT INTERMITTENTLY. PT IN NO ACUTE RESPIRATORY DISTRESS. PT OXYGEN SATURATION IS 97% ON 15L NONREBREATHER MASK.PRESCRIBED MEDICATION GIVEN AND PT TOLERATED IT WELL.PT GIVEN TYLENOL 650 MG PRN AT 0521H FOR GENERALIZED PAIN . PT ON SINUS RHYTHM. PT STABLE.PT IV INTACT.SAFETY AND COMFORT PROVIDED. WILL ENDORSE TO INCOMING NURSE FOR CONTINUITY OF CARE.
[2021-04-20 07:12] LABS: MEAN CORPUSCULAR HEMOGLOBIN 29.5 uug (24.7-32.8); MEAN CORPUSCULAR VOLUME 89.8 fL (75.5-95.3); PLATELET COUNT (AUTO) 274 K/uL (179-408)
[2021-04-20 08:06] LABS: CREATININE 0.7 mg/dL (0.6-1.3); MAGNESIUM 1.9 mg/dL (1.8-2.4); PHOSPHOROUS 3.9 mg/dL (2.5-4.9); POTASSIUM 3.8 mmol/L (3.5-5.1)
[2021-04-20] MEDS: ACIDOPHILUS/BULGARICUS CHEW TAB PO SCH ×2 (08:35→20:50)
[2021-04-20] MEDS: ASPIRIN EC 81 MG TABLET.DR PO SCH (08:35)
[2021-04-20] MEDS: ZINC SULFATE 220 MG CAPSULE PO SCH (08:35)
[2021-04-20] MEDS: MULTIVITAMINS,THERAPEUTIC TABLET PO SCH (08:35)
[2021-04-20] MEDS: ASCORBIC ACID 500 MG TABLET PO SCH (08:35)
[2021-04-20] MEDS: DOCUSATE SODIUM 100 MG CAPSULE PO SCH ×2 (08:35→20:49)
[2021-04-20] MEDS: FUROSEMIDE 20 MG TABLET PO SCH (08:36)
[2021-04-20] MEDS: CHOLECALCIFEROL 1,000 UNIT TABLET PO SCH (08:36)
[2021-04-20] MEDS: DEXAMETHASONE SOD PHOSPHATE 4 MG INJ IV SCH ×2 (08:46→21:21)
[2021-04-20] MEDS: CLOTRIMAZOLE 1% CREAM 30 GM TUBE TOP SCH ×2 (08:51→16:56)
[2021-04-20] MEDS: LOSARTAN POTASSIUM 25 MG TABLET PO SCH (08:51)
[2021-04-20 11:23] VITALS: BP 122/74
[2021-04-20 15:54] VITALS: BP 113/72
[2021-04-20] MEDS ORDERED: IOHEXOL 350 100 ML INFUS..BTL ONE (18:01)
[2021-04-20] MEDS ORDERED: IV NORMAL SALINE 250 ML IV ONE (18:01)
[2021-04-20] MEDS ORDERED: SWABABLE VALVE TRANSFER SET EA MC ONE (18:01)
--- NOTE | 2021-04-20 18:23 | NUR ---
Pt is awake, alert and oriented x 4, pt is 15L nonrebreather and 4L NC saturating 91%, desaturates when coughing or moving. Pt was complaining of chest pain, MD notified, Stat troponin and ECG were ordered. Kept NPO after lunch for CT to be done at a later time. Pt was taken for a CT of the chest at 1700. RT put her on 4L NC in addition to 15L nonrebreather when she was brought back up. Pt is currently not in any acute distress or discomfort, call light in reach, comfort measures provided. Will endorse pt to shift mgr RN.
[2021-04-20 20:00] VITALS: BP 155/81
[2021-04-20] MEDS: ZOLPIDEM 5 MG TABLET PO PRN (22:43)
[2021-04-20] MEDS: BENZONATATE 100 MG CAPSULE PO PRN (22:43)
[2021-04-21] VITALS: BP 148/91
[2021-04-21 04:00] VITALS: BP 126/76
[2021-04-21] MEDS: PANTOPRAZOLE SODIUM 40 MG TABLET.DR PO SCH (06:31)
[2021-04-21] MEDS: PIPERACILLIN SODIUM/TAZOBACTAM 3.375 G in IV DEXTROSE 5% 100 ML IV SCH ×3 (06:39→21:39)
--- NOTE | 2021-04-21 06:57 | NUR ---
PATIENT CONTINUED ON TELE SR/ST. NO RESP. DISTRESS NOTED. SLEPT WELL.
[2021-04-21] MEDS: ASPIRIN EC 81 MG TABLET.DR PO SCH (09:21)
[2021-04-21] MEDS: DOCUSATE SODIUM 100 MG CAPSULE PO SCH ×2 (09:21→21:35)
[2021-04-21] MEDS: ASCORBIC ACID 500 MG TABLET PO SCH (09:21)
[2021-04-21] MEDS: ACIDOPHILUS/BULGARICUS CHEW TAB PO SCH ×2 (09:21→21:35)
[2021-04-21] MEDS: ZINC SULFATE 220 MG CAPSULE PO SCH (09:21)
[2021-04-21] MEDS: CHOLECALCIFEROL 1,000 UNIT TABLET PO SCH (09:21)
[2021-04-21] MEDS: CLOTRIMAZOLE 1% CREAM 30 GM TUBE TOP SCH ×2 (09:22→16:04)
[2021-04-21] MEDS: DEXAMETHASONE SOD PHOSPHATE 4 MG INJ IV SCH ×2 (09:22→21:35)
[2021-04-21] MEDS: MULTIVITAMINS,THERAPEUTIC TABLET PO SCH (09:23)
[2021-04-21 11:30] VITALS: BP 144/92
--- NOTE | 2021-04-21 12:13 | NUR ---
O2 SAT AT THIS TIME IS 83 AND SHE IS ON 15 LITERS OF O2 BY NON REBREATHER AND 6L OF O2 BY SIMPLE MASK SHE SEEMS NOT TO BE IN DISTRESS AT THIS TIME AND DR SANFORD IS HERE SEEN PATIENT AND STATED TO HAVE THE RT TO TITRATE TO MAINTAIN SATS AT MID 80S PERCUSSION INSTRUMENT TUNER NOTIFIED.
[2021-04-21] MEDS ORDERED: ENOXAPARIN SODIUM 40 MG/0.4 ML DISP.SYRIN SQ SCH (13:30)
--- NOTE | 2021-04-21 13:45 | NUR ---
PATIENT IS NOW ON 40 LITERS WITH 100 PERCENT FIO2 HI FLOW PLUS 15 LITERS NON REBREATHER MASK AND SATS IS FLUCTUATING FROM 81 TO 83 PERCENT SHE STATED THAT SHE IS COMFORTABLE WITH NO SOB AT THIS TIME WILL CONTINUE TO OBSERVE.
[2021-04-21] MEDS ORDERED: BISACODYL 10 MG SUPP.RECT RC PRN (15:30)
[2021-04-21 15:45] VITALS: BP 135/88
[2021-04-21] MEDS ORDERED: LACTULOSE 20 G/30 ML LIQUID UDC PO ONE (16:00)
[2021-04-21] MEDS: ACETAMINOPHEN 325 MG TABLET PO PRN ×2 (16:37→21:45)
--- NOTE | 2021-04-21 18:00 | NUR ---
MIGUEL LAY WATER RESOURCE ENGINEER AWARE AND STATED TO OKAY TO ORDER HI FLOW TO MAINTAIN SATURATION RESPIRATORY THERAPIST NOTIFIED.
--- NOTE | 2021-04-21 19:30 | NUR ---
RECEIVED PT AWAKE, ALERT AND ORIENTEDX4. PT ON HIGH FLOW OXYGEN. PT IN NO ACUTE DISTRESS. IV INTACT. SAFETY AND COMFORT PROVIDED. WILL CONTINUE TO MONITOR. PT OBSERVED ON SINUS TACHYCARDIC BASED ON AM NURSE DR BEAN.
[2021-04-21 20:18] VITALS: BP 120/69
[2021-04-21] MEDS ORDERED: VANCOMYCIN IV 2,000 MG in IV DEXTROSE 5% 500 ML IV ONE (22:00)
[2021-04-21] MEDS: ZOLPIDEM 5 MG TABLET PO PRN (22:00)
[2021-04-21] MEDS ORDERED: VANCOMYCIN 1000 MG VIAL ONE (22:50)
--- NOTE | 2021-04-21 22:54 | NUR ---
INFORMED CARGO SURVEYOR REGARDING PT SUSTAINING SINUS TACHYCARDIA ON [id number]. PT ON DOUBLE SETUP HIGHFLOW AND 15L NONREBREATHER MASK. PT AFEBRILE AND NOT IN PAIN. PT BLOOD PRESSURE IS 120/69. DR. JANSEN ORDERED STAT EKG AND ASK REGARDING HER OXYGEN SATURATION. OXYGEN WAS 80.
--- NOTE | 2021-04-21 23:08 | NUR ---
PT DESATURATING MORE WHILE DOING EKG. RAPID RESPONSE TEAM CALLED
--- NOTE | 2021-04-21 23:15 | NUR ---
DR. MICHEAL JANSEN ASKED ER DR TO SEE PT. DR. HARSHA SILVERMAN SPOKE TO PT AND FAMILY MEMBER REGARDING PT NEEDING INTUBATION . PT AND DAUGHTER AGREED TO BE INTUBATED AND BE TRANSFERRED TO CCU.
--- NOTE | 2021-04-22 | NUR ---
PT INTUBATED BY DR. HARSHA SILVERMAN WITH SNOW GROOMER AT 2340H AND WILL BE PLACE TO VENT. PT TRANSFER TO CCU WITH THE DR AND SNOW GROOMER AT 0000H .REPORT GIVEN TO AMIRA NATHAN.
[2021-04-22 00:02] VITALS: BP 99/58
--- NOTE | 2021-04-22 00:10 | NUR ---
received report and patient wheeled post rapid response , post intubation , accompanied by dr chapa , rt's , and primary rn
--- NOTE | 2021-04-22 00:10 | NUR ---
received patient , obtunded , on vent setting of ac 24 tv 500 p5 fio2 of 100 % , 7. 5 ett size , t 98/0 , bp hr 88 -. 24 , incontinent , DR CHAPA at bedside along with RT's , dr ramirez was notified by dr chapa , and family is outside
[2021-04-22] MEDS ORDERED: PROPOFOL 100 ML ONE (00:11)
--- NOTE | 2021-04-22 00:15 | NUR ---
propofol was taken out but never hanged , heart rate and blood pressure being monitored , started to slow down to and hypotensive
--- NOTE | 2021-04-22 00:15 | NUR ---
cxr done post intubation
--- NOTE | 2021-04-22 00:27 | NUR ---
dr chapa was notified of change of status of patient , chest is enlarging , heart rate is going argelia to 30 's , blood pressure is 63 / 42 , cxr image was looked by dr chapa
--- NOTE | 2021-04-22 00:28 | NUR ---
ER NOTIFIED OF LOW BLOOD PRESSURE AND HEART RATE , RECEIVED ORDER TO SET UP A CHEST TUBE EQUIPMENT
[2021-04-22 00:30] VITALS: BP 63/42
[2021-04-22] MEDS ORDERED: PROPOFOL 100 ML IV PRN (00:30)
[2021-04-22 00:40] VITALS: BP 44/27
[2021-04-22] MEDS ORDERED: IV NS 1000 ML 1,000 ML IV ONE (00:40)
--- NOTE | 2021-04-22 00:40 | NUR ---
radiologist called to notify of results of cxr , right lung collapsed , and right large pneumothorax , relayed to dr chapa the results
--- NOTE | 2021-04-22 00:40 | NUR ---
dr chapa inserted a chest tube on 20 cm suction , suture intact , dressing intact
[2021-04-22] MEDS ORDERED: NOREPINEPHRINE BITARTRATE 4 MG/4 ML VIAL IV ONE ×3 (00:54→01:01)
--- NOTE | 2021-04-22 01:05 | NUR ---
dr chapa spoke to the family regarding prognosis of the patient
[2021-04-22] MEDS ORDERED: CALCIUM CHLORIDE 1 GM/10 ML DISP.SYRIN IVP ONE (01:13)
[2021-04-22] MEDS ORDERED: SODIUM BICARBONATE 8.4% 50 MEQ/50 ML DISP.SYRIN IV ONE (01:13)
[2021-04-22] MEDS ORDERED: ETOMIDATE 20 MG/10 ML VIAL IV ONE (01:14)
[2021-04-22] MEDS ORDERED: SUCCINYLCHOLINE CHLORIDE 200 MG/10 ML VIAL IV ONE (01:14)
--- NOTE | 2021-04-22 01:15 | NUR ---
dr chapa called dr gibbs to notify patient , family at bedside
[2021-04-22 01:32] LABS: CREATININE 0.9 mg/dL (0.6-1.3); POTASSIUM 4.7 mmol/L (3.5-5.1)
[2021-04-22] MEDS ORDERED: NOREPINEPHRINE BITARTRATE 8 MG in IV NORMAL SALINE 242 ML IV PRN (01:45)
--- NOTE | 2021-04-22 02:30 | NUR ---
all belongings on the list of original belongings sent to the family
== END 2021-04-22 01:15 | DRG 208 ==
LOC: ER 18:48 → TELE3 03-12 04:43 → CCU 04-22 00:01
PROVIDERS: ADMIT Internal Medicine; ATTEND Nurse Practitioner Acute Care
PROC: XW033E5 Introduction of Remdesivir Anti-infective into Peripheral Vein, Percutaneous Approach, New Technology Group 5 (ICD-10-PCS; principal; 2021-03-12)
PROC: 05H533Z Insertion of Infusion Device into Right Subclavian Vein, Percutaneous Approach (ICD-10-PCS; 2021-03-13)
PROC: B546ZZA Ultrasonography of Right Subclavian Vein, Guidance (ICD-10-PCS; 2021-03-13)
PROC: XW033H5 Introduction of Tocilizumab into Peripheral Vein, Percutaneous Approach, New Technology Group 5 (ICD-10-PCS; 2021-03-17)
PROC: 0W9930Z Drainage of Right Pleural Cavity with Drainage Device, Percutaneous Approach (ICD-10-PCS; 2021-04-22)
PROC: 5A12012 Performance of Cardiac Output, Single, Manual (ICD-10-PCS; 2021-04-22)
PROC: 5A2204Z Restoration of Cardiac Rhythm, Single (ICD-10-PCS; 2021-04-22)
PROC: 0BH18EZ Insertion of Endotracheal Airway into Trachea, Via Natural or Artificial Opening Endoscopic (ICD-10-PCS; 2021-04-22)
PROC: 5A1935Z Respiratory Ventilation, Less than 24 Consecutive Hours (ICD-10-PCS; 2021-04-22)
DX: U07.1 COVID-19 (principal); J12.82 Pneumonia due to coronavirus disease 2019; J96.01 Acute respiratory failure with hypoxia; I50.31 Acute diastolic (congestive) heart failure; E43 Unspecified severe protein-calorie malnutrition; J93.0 Spontaneous tension pneumothorax; Z68.43 Body mass index [BMI] 50.0-59.9, adult; B37.0 Candidal stomatitis; D68.59 Other primary thrombophilia; N39.0 Urinary tract infection, site not specified; E66.01 Morbid (severe) obesity due to excess calories; E11.9 Type 2 diabetes mellitus without complications; I11.0 Hypertensive heart disease with heart failure; G47.00 Insomnia, unspecified; K44.9 Diaphragmatic hernia without obstruction or gangrene; K21.9 Gastro-esophageal reflux disease without esophagitis; Z87.01 Personal history of pneumonia (recurrent); Z66 Do not resuscitate; E78.5 Hyperlipidemia, unspecified; J40 Bronchitis, not specified as acute or chronic; B95.1 Streptococcus, group B, as the cause of diseases classified elsewhere; J98.4 Other disorders of lung
CPT/HCPCS: 36415; 36600; 70030-TC; 71045; 71275; 83615; 83735; 84100; 84443; 85025; 85610; 85730; 86140; 86480; 87070; 87077; 87086; 87328; 93005; 93307; 94002; 94760; 97161; A4663; A6209; G0378; J0330; J0696; J1100; J1200; J1650; J1940; J2543; J3262; J3370; J3490; J3535; J7040; J7050; J7060; Q0144; Q9967; U0003